=== PATIENT | female | born 1950 | race Caucasian/White ===

== ENCOUNTER 2019-07-27 15:07 | Emergency (ER) | payer MEDICARE, BC, SELFPAY ==
--- NOTE | 2019-07-27 | XR_ITS ---
WS: [id number] ELBOW RIGHT TECHNIQUE: 2 views of the right elbow CLINICAL INFORMATION: POST REDUCTION COMPARISON: July 27, 2019 FINDINGS: Postreduction elbow dislocation in good position. No definite visualized fractures. Soft tissue edema . Moderate joint effusion. XR/XR elbow RT 2V 79575 IMPRESSION: Postreduction elbow dislocation in good position. No definite fractures.
[2019-07-27 15:14] VITALS: BP 125/82; PULSE 69; RESP 20; TEMP 36.7; O2SAT 100; BMI 32.5
--- NOTE | 2019-07-27 15:14 | W.ED.UPPEXIN ---
Documented by User: Gloria Egan DO 07/27/19 18:08 HPI - Extremity Injury (Upper) General: Chief Complaint: Extremity Injury, Upper Stated Complaint: RIGHT ELBOW PAIN Time Seen by Provider: 07/27/19 15:11 History of Present Illness: HPI narrative: Pt was stepping up on a stool about 2 feet high and she fell landing on her right side. severe earlene nto right elbow, wrist, and hand. Has abrasions to her right knuckles. No head injury. No neck or back pain, and no pain in hips or legs. MD complaint: injury to: right, shoulder, elbow, wrist and hand Onset (ago): hour(s) (1) Other injuries: none Handedness: right Place: home Severity: severe Severity scale (1-10): 10 Relieving factors: none Exacerbating factors: movement of extremity Context: fall Associated symptoms: Reports crepitus; Denies foreign body sensation, neck pain, numbness or weakness in extremities Treatments prior to arrival: cold therapy Review of Systems General: Reports: 10 or more systems reviewed and unremarkable except in HPI and below Const: Denies: fever, chills or fatigue ENMT: Denies: throat pain Card: Denies: chest pain or swelling of feet/ankles Resp: Denies: shortness of breath or productive cough GI: Denies: abdominal pain, nausea, vomiting, diarrhea, constipation or blood in stool : Denies: difficulty urinating Musc: Reports: extremity swelling, joint pain, joint swelling, limited range of motion and deformity (distal right hand); Denies: neck pain Skin/Breast: Reports: other (abrasions to right knuckles); Denies: rash Neuro: Denies: weakness in extremities PFSH ED PFSH: Social History Smoking and tobacco status: never smoked Physical Exam Const: COMMON NORMALS: oriented x3, no limitations and healthy appearing; apparent distress EXAM LIMITATIONS: no altered mental status GENERAL APPEARANCE: cooperative and in distress Neck/C-Spine: COMMON NORMALS: full ROM GENERAL: Yes normal visual inspection and Yes trachea midline CERVICAL SPINE: Yes cervical ROM normal, No pain with cervical ROM, No cervical spine tenderness, No step off deformity and No paracervical muscle tenderness Chest: COMMONS NORMALS: inspection of chest normal Resp: COMMON NORMALS: normal respiratory effort, no retractions and clear to auscultation bilaterally EFFORT & INSPECTION: Yes able to speak in complete sentences AUSCULTATION: clear to auscultation bilaterally, no rales, no rhonchi and no wheezes Cardio: COMMON NORMALS: regular rate, regular rhythm, no murmurs and peripheral pulses 2+ throughout RATE: regular rate RHYTHM: regular rhythm PERIPHERAL PULSES: pulses 2+ throughout GI: COMMON NORMALS: normal to inspection, nondistended, normoactive bowel sounds, soft to palpation and non-tender PALPATION: Yes soft : COMMON NORMALS: Yes no CVA tenderness BLADDER/KIDNEY EXAM: Yes no CVA tenderness Back/Pelvis: COMMON NORMALS: no CVA tenderness, thoracic and lumbar spine normal to inspection, no thoracic nor lumbar tenderness and thoraco-lumbar ROM normal Extremity: RIGHT UPPER EXTREMITY: Yes shoulder joint (tender to palpation posteriorly, decreased ROM in abduction), Yes elbow joint (significant tenderness and swelling inferior to elbow with ecchymosis, ) Right elbow: Yes ROM (held in flexion, will not move), Yes wrist Right wrist: Yes palpation (tender to palpation of wrist, no swelling or deformity) and Yes hand & digits (swelling distal hand 4th and 5h metacarpals, good cap refill) Neuro: COMMON NORMALS: oriented x3 GAIT: Yes normal gait MOTOR EXAM: strength 5/5 throughout Psych: COMMON NORMALS: mental status grossly normal, thought process normal and cooperative THOUGHT PROCESS: normal thought process Procedures Orthopedic Splinting/Casting Injury #1: Side: right Upper Extremity Injury Location: elbow Upper Extremity Immobilizer: posterior splint and Nemesio wrap Course Vital Signs: Vital signs: Vital Signs Temperature 97.8 F 07/27/19 18:28 Pulse Rate 62 07/27/19 18:28 Respiratory Rate 16 07/27/19 18:28 Blood Pressure 119/73 07/27/19 18:28 Pulse Oximetry 100 07/27/19 18:28 MDM - Extremity Injury (Upper) MDM Narrative: Medical decision making narrative: shoulder and wrist show no acute fractures, elbow right shows posteror elbow dislocation. the pt had a 2cm deep puncture at elbow so it was cleaned well and loosely approximated and I will start her on abx, We have put her in a splint and will have her see Dr Sargent next week as instructed by Dr Sargent. Pt understands that if she doesnt she could lose her arm or function of her arm. She will return if anything worsens Imaging Data^: Other Xray: Radiologist's impression: XRay Report Signed Patient: Bebe Andrew #: [id number] : 1At#:[id number] Age/Sex: 68 / FADM Date: 07/27/19 Loc: ERRoom/Bed: Attending Dr: Ordering Provider/Ordering MD: Gloria Egan DO Date of Service: 07/27/19 Procedure(s): XR elbow RT 2V 35244 Accession Number(s): [id number] Report Number: [id number] WS: [id number] ELBOW RIGHT TECHNIQUE: 2 views of the right elbow CLINICAL INFORMATION: trauma COMPARISON: None. FINDINGS: Soft tissue edema. Joint effusion. Posterior elbow dislocation. Distal humerus is dislocated relative to the olecranon fossa. No definite visualized fractures. XR/XR elbow RT 2V 45028 IMPRESSION: Posterior elbow dislocation. No definite visualized fractures. Xray Ortho: Radiologist's impression: XRay Report Signed Patient: Bebe Andrew #: [id number] : 1At#:[id number] Age/Sex: 68 / FADM Date: 07/27/19 Loc: ERRoom/Bed: Attending Dr: Ordering Provider/Ordering MD: Gloria Egan DO Date of Service: 07/27/19 Procedure(s): XR hand RT min 3V* [id number] Accession Number(s): [id number] Report Number: [id number] WS: [id number] HAND RIGHT TECHNIQUE: 3 views of the right hand CLINICAL INFORMATION: trauma COMPARISON: None. FINDINGS: Normal metacarpals. Normal MCP joint. Metacarpal heads are normal in appearance IP joint narrowing. No evidence of acute fracture or dislocation. Radiocarpal joint: Normal. Carpal bones: Normal. XR/XR hand RT min 3V* [id number] IMPRESSION: No acute fractures Dictated By:Amandeep Costa MD Signed By:Amandeep Costa MDSigned Date/Time:07/27/19 1557 Discharge Plan Discharge Patient Disposition: Home, Self-Care Clinical Impression: Sprain and strain of wrist Dislocation of elbow Qualifiers: Encounter type: initial encounter Laterality: right Qualified Code(s): S53.104A - Unspecified dislocation of right ulnohumeral joint, initial encounter Contusion of hand Qualifiers: Encounter type: initial encounter Laterality: right Qualified Code(s): S60.221A - Contusion of right hand, initial encounter Condition: Stable Prescriptions: New hydrocodone-acetaminophen 5-325 mg tablet 1 tab PO Q4H PRN (Reason: pain) Qty: 20 RF: 0 doxycycline hyclate 100 mg tablet 100 mg PO BID 7 Days Qty: 14 RF: 0 No Action aspirin 81 mg Tablet,Delayed Release (Dr/Ec) 81 mg PO DAILY RF: 0 spironolactone 25 mg tablet 25 mg PO DAILY RF: 0 Synthroid 100 mcg tablet 100 mcg PO DAILY RF: 0 citalopram 20 mg tablet 20 mg PO DAILY RF: 0 metoprolol succinate 25 mg tablet extended release 24 hr 25 mg PO DAILY RF: 0 Crestor 5 mg Tablet 5 mg PO DAILY RF: 0 vit D3-vit X-iilrvfgvr-njtk [id number] vdbi-qcz-ka-mg Tablet 1 tab PO DAILY RF: 0 Entresto 24-26 mg Tablet 1 tab PO BID RF: 0 Discharge Orders: Discharge Order (Routine); Ordered 07/27/19 Ordered By: Gloria Egan Referrals: Berta Carroll MD [Primary Care Provider] - Pinky Sargent MD [Physician] - 1 week Discharge Diet: Regular Discharge Activity: Limit activity as instructed Patient Instructions: Dislocation - Elbow Activity Restrictions/Additional Instructions: wear splint until released, Follow up with Dr Sargent next week. Case management will work on getting you an appointment. Ice and elevate. Return if worse, any problem, any change. Take meds as prescribed Discharge Date/Time: 07/27/19 18:29 Coding Level of Care Code ED Testing And Regulating Technician for Chg Fwd Exam Comprehensive Documented by User: Justyna Knowles MD, [facility] [place] 07/27/19 21:49 HPI - Extremity Injury (Upper) General: Chief Complaint: Extremity Injury, Upper Stated Complaint: RIGHT ELBOW PAIN Time Seen by Provider: 07/27/19 15:11 PFSH ED PFSH: Social History Smoking and tobacco status: never smoked Procedures Laceration Laceration 1: Site: upper extremity (right elbow) Size (cm): 1.5 Description: linear Depth: simple, single layer (2 cm) Local Anesthetic: lidocaine 1% and with epi Amount of anesthesia used (mL): 2 Pre-repair: wound explored and irrigated extensively Skin layer closed with: nylon Size (cm): 4-0 Number of sutures: 2 Technique: simple, interrupted Orthopedic Joint Reduction Joint #1: Time Out Performed: Yes Side: right Joint Reduction Location: elbow Analgesia: procedural sedation Technique used: traction/counter-traction Post-reduction neuro exam: intact Post-reduction vascular: intact Post Reduction X-Ray Obtained: Yes Post Reduction X-Ray Results: reduced Splint Applied: Yes Patient Tolerated Procedure: well Procedural Sedation Indication: fracture/dislocation reduction ASA Class: III Time of Last PO Intake: 12:00 Preparation: youth nutritional monitor applied, pulse oximeter, supplemental O2 applied, reversal agents at bedside, suction/airway equipment at bedside and IV secured Fentanyl: IV Fentanyl dose (mcg): 50 Midazolam dose (mg): 2 Patient Tolerated Procedure: well Complications: none Additional Comments: 2.5 of midazolam used, but Expanse is not accepting decimals Course Vital Signs: Vital signs: Vital Signs Temperature 97.8 F 07/27/19 18:28 Pulse Rate 62 07/27/19 18:28 Respiratory Rate 16 07/27/19 18:28 Blood Pressure 119/73 07/27/19 18:28 Pulse Oximetry 100 07/27/19 18:28 Discharge Plan Discharge Patient Disposition: Home, Self-Care Clinical Impression: Sprain and strain of wrist Dislocation of elbow Qualifiers: Encounter type: initial encounter Laterality: right Qualified Code(s): S53.104A - Unspecified dislocation of right ulnohumeral joint, initial encounter Contusion of hand Qualifiers: Encounter type: initial encounter Laterality: right Qualified Code(s): S60.221A - Contusion of right hand, initial encounter Condition: Stable Prescriptions: New hydrocodone-acetaminophen 5-325 mg tablet 1 tab PO Q4H PRN (Reason: pain) Qty: 20 RF: 0 doxycycline hyclate 100 mg tablet 100 mg PO BID 7 Days Qty: 14 RF: 0 No Action aspirin 81 mg Tablet,Delayed Release (Dr/Ec) 81 mg PO DAILY RF: 0 spironolactone 25 mg tablet 25 mg PO DAILY RF: 0 Synthroid 100 mcg tablet 100 mcg PO DAILY RF: 0 citalopram 20 mg tablet 20 mg PO DAILY RF: 0 metoprolol succinate 25 mg tablet extended release 24 hr 25 mg PO DAILY RF: 0 Crestor 5 mg Tablet 5 mg PO DAILY RF: 0 vit D3-vit X-wxialqvsz-ityw [id number] jcjs-spy-bm-mg Tablet 1 tab PO DAILY RF: 0 Entresto 24-26 mg Tablet 1 tab PO BID RF: 0 Discharge Orders: Discharge Order (Routine); Ordered 07/27/19 Ordered By: Glroia Egan Referrals: Berta Carroll MD [Primary Care Provider] - Pinky Sargent MD [Physician] - 1 week Discharge Diet: Regular Discharge Activity: Limit activity as instructed Patient Instructions: Dislocation - Elbow Activity Restrictions/Additional Instructions: wear splint until released, Follow up with Dr Sargent next week. Case management will work on getting you an appointment. Ice and elevate. Return if worse, any problem, any change. Take meds as prescribed Discharge Date/Time: 07/27/19 18:29 Coding Level of Care Code ED Testing And Regulating Technician for [place] Fwd Exam Comprehensive
--- NOTE | 2019-07-27 15:20 | XR_ITS ---
WS: [id number] HAND RIGHT TECHNIQUE: 3 views of the right hand CLINICAL INFORMATION: trauma COMPARISON: None. FINDINGS: Normal metacarpals. Normal MCP joint. Metacarpal heads are normal in appearance IP joint narrowing. N o evidence of acute fracture or dislocation. Radiocarpal joint: Normal. Carpal bones: Normal. XR/XR hand RT min 3V* [id number] IMPRESSION: No acute fractures
--- NOTE | 2019-07-27 15:20 | XR_ITS ---
WS: [id number] SHOULDER RIGHT TECHNIQUE: 3 views of the right shoulder CLINICAL INFORMATION: trauma COMPARISON: None. FINDINGS: Normal acromioclavicular joint. Normal glenohumeral joint. Acromion is normal in appearance. Normal g lenoid. No evidence of acute fracture dislocation. Partially visualized AICD. Sternotomy. XR/XR shoulder RT min 2V* [id number] IMPRESSION: No acute fractures
--- NOTE | 2019-07-27 15:20 | XR_ITS ---
WS: [id number] WRIST RIGHT TECHNIQUE: 2 views of the right wrist CLINICAL INFORMATION: trauma COMPARISON: None. FINDINGS: Normal radiocarpal joint. Scaphoid is normal in appearance. No evidence of radiocarpal dislocation. D istal radius and ulna are normal in appearance. XR/XR wrist RT 2V [id number] IMPRESSION: No acute fractures
--- NOTE | 2019-07-27 15:20 | XR_ITS ---
WS: [id number] ELBOW RIGHT TECHNIQUE: 2 views of the right elbow CLINICAL INFORMATION: trauma COMPARISON: None. FINDINGS: Soft tissue edema. Joint effusion. Posterior elbow dislocation. Distal humerus is dislocated relative to the olecranon fossa. No definite visualized fractures. XR/XR elbow RT 2V [id number] IMPRESSION: Posterior elbow dislocation. No definite visualized fractures.
[2019-07-27 15:25] VITALS: RESP 21
[2019-07-27] MEDS: morphine 4 mg/mL SDV 1 mL IVP ×2 (15:25→15:46)
[2019-07-27] MEDS: ondansetron 2 mg/ML SDV 2 mL 4 MG IVP (15:25)
[2019-07-27 15:46] VITALS: RESP 16; O2SAT 98
[2019-07-27 16:26] VITALS: BP 125/68; PULSE 78; RESP 18; TEMP 36.9; O2SAT 97; O2SAT 98
[2019-07-27] MEDS: fentaNYL 50 mcg/mL INJ 2mL IVP (16:26)
[2019-07-27] MEDS: midazolam 1 mg/mL INJ 2 mL 2.5 MG IVP (16:28)
[2019-07-27] MEDS: tetanus-dipt-pertussis 0.5 mL SDV IM (17:47)
[2019-07-27 18:28] VITALS: BP 119/73; PULSE 62; RESP 16; TEMP 36.6; O2SAT 100
--- NOTE | 2019-07-28 14:34 | DCPLANNER ---
Addendum entered by Lisbet Mcintyre 08/02/19 11:27: Tiffanie from ortho called case reviewer and informed case reviewer that a follow up appointment was scheduled for Wednesday, August 02, 2019 at 12:[address] Mcarthur. Clinic will call patient with appointment information. Original Note: hospice case manager had message to schedule a follow up appointment for patient with ortho. hospice case manager called ortho, spoke with [facility], gave clinic patients information. hospice case manager was told that patients information would be printed and reviewed. Clinic will call case reviewer and patient with appointment information.
--- NOTE | 2019-09-12 07:58 | DCPLANNER ---
Patient did attend appointment scheduled for 08.02.19 with ortho.
== END 2019-07-27 18:29 | disposition home or self-care (01) ==
PROVIDERS: Emergency Provider Emergency Medicine; Family Provider Family Medicine; PCP Family Medicine
DX: S53.124A Posterior dislocation of right ulnohumeral joint, initial encounter (principal); S60.221A Contusion of right hand, initial encounter; S51.011A Laceration without foreign body of right elbow, initial encounter; S63.501A Unspecified sprain of right wrist, initial encounter; W17.89XA Other fall from one level to another, initial encounter
CPT/HCPCS: 12001; 12345; 24600; 73030; 73070; 73100; 73130; 90471; 90715; 96374; 96375; 96376; 99283; 99284; J2250; J2270; J2405; J3010

== ENCOUNTER → 2019-08-02 13:15 | Outpatient (BNVA) | payer MEDICARE, BC, SELFPAY | PROVIDERS: Family Provider Family Medicine; PCP Family Medicine; Visit Provider Orthopaedic Surgery | DX: M25.521 Pain in right elbow (principal); R60.9 Edema, unspecified; M25.421 Effusion, right elbow | CPT/HCPCS: 73080 ==

== ENCOUNTER 2020-01-02 11:00 | Outpatient (CLI) | payer MEDICARE, BC, SELFPAY ==
--- NOTE | 2020-01-02 11:16 | MM_ITS ---
WS: [id number] BILATERAL SCREENING DIGITAL MAMMOGRAM WITH CAD HISTORY: SCREEN COMPARISON: 11/17/2018 and 11/03/2017 Bilateral CC and MLO views submitted. Computer aided detection analyzed. Breast composition: There are scattered areas of fibroglandular density. No suspicious masses, microc alcifications or architectural distortion. Benign calcifications in each breast. MM/[place] [id number] IMPRESSION: BI-RADS: 2-Benign FOLLOW UP: 1 Year Follow-up
== END 2020-01-02 11:01 | disposition home or self-care (01) ==
LOC: RADSHAW 11:03
PROVIDERS: PCP Family Medicine; Visit Provider Family Medicine
DX: Z12.31 Encounter for screening mammogram for malignant neoplasm of breast (principal)
CPT/HCPCS: 77067

== ENCOUNTER 2020-05-14 14:21 | Outpatient (CLI) | payer MEDICARE, BC, SELFPAY ==
--- NOTE | 2020-05-14 14:25 | XR_ITS ---
WS: [id number] DEXA (DUAL ENERGY X-RAY ABSORPTIOMETRY) Bone mineral density was performed using a [employer] machine. HISTORY: ASYMPTOMATIC MENOPAUSAL STATE COMPARISON: 06/30/2017 Lumbar spine BMD (L1-L4): 1.135 g/cm2 T score: -0.4 Z score: 0.5 Total hip BMD: Left: 0.792 g/cm2. T score: -1.7 Z score: -0.8 Right: 0.834 g/cm2. T score: -1.4 Z score: -0.5 10 year probability of a major osteoporotic fracture is 10%. Compared to the prior study from 06/30/2017. Lumbar spine bone mineral density has increased by 1.2%. Bilateral hips bone mineral density has increased by 1.8%. XR/XR DEXA axial skeleton* [id number] IMPRESSION: OSTEOPENIA based upon the WHO classification for females. No significant change since the prior study.
== END 2020-05-14 14:22 | disposition home or self-care (01) ==
LOC: RADWPI 14:23
PROVIDERS: PCP Family Medicine; Visit Provider Family Medicine
DX: Z78.0 Asymptomatic menopausal state (principal); M85.88 Other specified disorders of bone density and structure, other site
CPT/HCPCS: 77080

== ENCOUNTER 2020-07-19 10:25 | Outpatient (CLI) | payer MEDICARE, BC, SELFPAY ==
--- NOTE | 2020-07-19 10:38 | XR_ITS ---
WS: [id number] Chest 2 views, 07/19/2020 Clinical Data: PNEUMONIA, UNSPECIFIED ORGANISM Comparison: Portable chest, 05/09/2018. Findings: No nodules, masses or effusions are seen. The heart is normal. The pulmonary vascularity is not increased. No pneumonia or pneumothorax is seen. Midline sternotomy sutures are present. There i s a 2-lead pacemaker in good position. The aortic arch and descending aorta show mild tortuosity. XR/XR chest 2V* 55901 Impression: Atherosclerosis and prominent pacemaker.
== END 2020-07-19 10:26 | disposition home or self-care (01) ==
LOC: RADWPI 10:32
PROVIDERS: PCP Family Medicine; Visit Provider Nurse Practitioner Family
DX: J18.9 Pneumonia, unspecified organism (principal); I70.90 Unspecified atherosclerosis; Z95.0 Presence of cardiac pacemaker
CPT/HCPCS: 71046

== ENCOUNTER 2020-10-31 18:19 | Emergency (ER) | payer MEDICARE, BC, SELFPAY ==
[2020-10-31 18:44] VITALS: BP 150/83; PULSE 67; RESP 18; TEMP 36.7; O2SAT 96; BMI 34.3
[2020-10-31 20:44] VITALS: BP 171/80; PULSE 68; TEMP 36.7; O2SAT 97
--- NOTE | 2020-10-31 20:55 | XRR_ITS ---
PROCEDURE INFORMATION: Exam: XR Right Ankle Exam date and time: 10/31/2020 8:55 PM Age: 70 years old Clinical indication: Injury or trauma; Fall; Blunt trauma; Ankle; Right; Prior surgery; Surgery type: Vein bypass TECHNIQUE: Imaging protocol: XR Right ankle. Views: 3 or more views. COMPARISON: No relevant prior studies available. FINDINGS: Bones/joints: There is a mildly displaced fracture of the lateral malleolus at and above the level of the distal tibiofibular syndesmosis. There is a displaced fracture the medial malleolus. There is a displaced fracture of the posterior malleolus. There is anterior subluxation of the tibia relative to talus. The hindfoot is intact. Soft tissues: There is diffuse soft tissue edema at the ankle. XR/XR ankle RT min 3V* [id number] IMPRESSION: Unstable displaced trimalleolar ankle fracture with anterior subluxation of the tibia relative to the talus.
--- NOTE | 2020-10-31 21:10 | W.ED.EXTPRO ---
Documented by User: JIM Lawrence 10/31/20 23:37 HPI - Extremity Problem General: Chief complaint: Extremity Injury, Lower Stated complaint: r leg injury Time Seen by Provider: 10/31/20 21:10 History of Present Illness: HPI Narrative: [place]. Patient has pain and discomfort with swelling to the lower right ankle. Injury occurred today. Patient has a history of coronary artery disease, hypertension, hyperlipidemia, and hearing loss. MD Complaint: extremity pain Onset (ago): hour(s) Pain Consistency: constant Location: right Quality: aching Radiation: none Relieving factors: rest Exacerbating factors: weight bearing Associated symptoms: Reports no associated symptoms Review of Systems General: Reports: 10 or more systems reviewed and unremarkable except in HPI and below Musc: Reports: other (Injury right ankle) [facility] ED PFSH: Medical History Cardiomyopathy HTN (hypertension) Hyperlipidemia Hypothyroidism Social History Smoking and tobacco status: never smoked Second hand smoke exposure: No Alcohol intake: never Household members: spouse Marital status: Special radha needs: No Physical Exam Const: COMMON NORMALS: no acute distress and patient oriented x3 GENERAL APPEARANCE: cooperative HENMT: COMMON NORMALS: normocephalic and Normal external nose present HEAD & SCALP: normal to inspection and normocephalic NOSE: Normal external nose present Eye: GENERAL EYE: appearance normal, both eyes and all related structures Neck/C-Spine: COMMON NORMALS: full ROM Lymph: LYMPHATIC: no lymphadenopathy noted Chest: COMMONS NORMALS: normal inspection of the chest Resp: COMMON NORMALS: normal respiratory effort EFFORT & INSPECTION: Yes able to speak in complete sentences Cardio: COMMON NORMALS: regular rate and regular rhythm RATE: regular rate RHYTHM: regular rhythm GI: COMMON NORMALS: non-tender Extremity: NARRATIVE EXTREMITY EXAM: No obvious deformity, significant swelling to the bilateral ankle with ecchymosis. Cap refill is intact, decreased pulse sensation. Neuro: COMMON NORMALS: patient oriented x3 and moves all extremities Psych: COMMON NORMALS: mental status grossly normal and cooperative Skin: COMMON NORMALS: no rashes or lesions noted GENERAL SKIN EXAM: no rashes or lesions noted Course ED course: 2129, discussed with Dr. Moody patient's trimalleolar fracture, he agreed with plan for reduction. Patient will be moved to a room and conscious sedation will be performed and manipulation of the joint will be performed. Consultations: Consultation #1: [id number], consulted with Dr. Thompson who agreed to plan duction and splinting and following up in the office. Vital Signs: Vital signs: Vital Signs Temperature 98.1 F 10/31/20 20:44 Pulse Rate 66 10/31/20 23:30 Respiratory Rate 18 10/31/20 23:30 Blood Pressure 145/69 10/31/20 23:30 Pulse Oximetry 98 10/31/20 23:30 MDM - Extremity (Nontraumatic) MDM Narrative: Medical decision making narrative: Patient comes in today for complaints of injury to the right ankle. Injury occurred this afternoon when [place] Patient had significant pain and swelling with ecchymosis to the ankle. Differential diagnosis includes fracture, sprain, neurovascular compromise. X-ray noted a trimalleolar fracture. I reviewed this with Dr. Moody who will assume care of patient for reduction of joint. Discharge Plan Discharge Patient Disposition: Home Clinical Impression: Ankle fracture Qualifiers: Encounter type: initial encounter Fracture type: closed Laterality: right Qualified Code(s): S82.891A - Other fracture of right lower leg, initial encounter for closed fracture Condition: Stable Prescriptions: New hydrocodone-acetaminophen 5-325 mg tablet 1 tab PO Q6H PRN (Reason: pain) Qty: 14 RF: 0 No Action furosemide 40 mg tablet 40 mg PO DAILY PRNRF: 0 aspirin 81 mg Tablet,Delayed Release (Dr/Ec) 81 mg PO DAILY RF: 0 Synthroid 100 mcg tablet 100 mcg PO DAILY RF: 0 citalopram 20 mg tablet 20 mg PO DAILY RF: 0 metoprolol succinate 25 mg tablet extended release 24 hr 25 mg PO DAILY RF: 0 Crestor 5 mg Tablet 5 mg PO DAILY RF: 0 vit D3-vit R-koukbjric-fisg [id number] sjgo-aye-nv-mg Tablet 1 tab PO DAILY RF: 0 Entresto 24-26 mg Tablet 1 tab PO BID RF: 0 spironolactone 25 mg tablet 12.5 mg PO DAILY RF: 0 Discharge Orders: Discharge ED (Routine); Ordered 11/01/20 Ordered By: Nessa Moody Referrals: Berta Carroll MD [Primary Care Provider] - Pinky Sargent MD [Physician] - 1-3 days Discharge Diet: Advance as tolerated Discharge Activity: Resume usual activity Patient Instructions: Ankle Fracture (ED), Opioid Safety Coding Level of Care Code ED Projection Technician for Chg Fwd Exam Comprehensive Documented by User: Nessa Moody MD 11/01/20 00:55 HPI - Extremity Problem General: Chief complaint: Extremity Injury, Lower Stated complaint: r leg injury Time Seen by Provider: 10/31/20 21:10 [facility] ED PFSH: Medical History Cardiomyopathy HTN (hypertension) Hyperlipidemia Hypothyroidism Social History Smoking and tobacco status: never smoked Second hand smoke exposure: No Alcohol intake: never Household members: spouse Marital status: Special radha needs: No Procedures Orthopedic Fracture Reduction Fracture #1: Time Out Performed: Yes Side: right Fracture Reduction Location: other (ankle) Analgesia: procedural sedation Technique: direct manipulation Post-reduction neuro exam: intact Post-reduction vascular exam: intact Splint Applied: Yes Patient Tolerated Procedure: well Procedural Sedation Indication: fracture/dislocation reduction ASA Class: II Time of Last PO Intake: 17:54 Preparation: night monitor applied, pulse oximeter and supplemental O2 applied IV Propofol dose (mg): 80 Patient Tolerated Procedure: well Complications: none Course Vital Signs: Vital signs: Vital Signs Temperature 98.1 F 10/31/20 20:44 Pulse Rate 66 10/31/20 23:30 Respiratory Rate 18 10/31/20 23:30 Blood Pressure 145/69 10/31/20 23:30 Pulse Oximetry 98 10/31/20 23:30 MDM - Extremity (Nontraumatic) MDM Narrative: Medical decision making narrative: I saw patient with above midlevel and did her reduction. I also placed her splint she is neurovascularly intact after splint placement. Patient is to follow-up with Dr. Thompson. Discharge Plan Discharge Patient Disposition: Home Clinical Impression: Ankle fracture Qualifiers: Encounter type: initial encounter Fracture type: closed Laterality: right Qualified Code(s): S82.891A - Other fracture of right lower leg, initial encounter for closed fracture Condition: Stable Prescriptions: New hydrocodone-acetaminophen 5-325 mg tablet 1 tab PO Q6H PRN (Reason: pain) Qty: 14 RF: 0 No Action furosemide 40 mg tablet 40 mg PO DAILY PRNRF: 0 aspirin 81 mg Tablet,Delayed Release (Dr/Ec) 81 mg PO DAILY RF: 0 Synthroid 100 mcg tablet 100 mcg PO DAILY RF: 0 citalopram 20 mg tablet 20 mg PO DAILY RF: 0 metoprolol succinate 25 mg tablet extended release 24 hr 25 mg PO DAILY RF: 0 Crestor 5 mg Tablet 5 mg PO DAILY RF: 0 vit D3-vit L-dicutccrz-eybv [id number] wakn-hfd-da-mg Tablet 1 tab PO DAILY RF: 0 Entresto 24-26 mg Tablet 1 tab PO BID RF: 0 spironolactone 25 mg tablet 12.5 mg PO DAILY RF: 0 Discharge Orders: Discharge ED (Routine); Ordered 11/01/20 Ordered By: Nessa Moody Referrals: Berta Carroll MD [Primary Care Provider] - Pinky Sargent MD [Physician] - 1-3 days Discharge Diet: Advance as tolerated Discharge Activity: Resume usual activity Patient Instructions: Ankle Fracture (ED), Opioid Safety Coding Level of Care Code ED Projection Technician for Chg Fwd Exam Comprehensive
--- NOTE | 2020-10-31 23:01 | PC.NURSE ---
doppler pulse of right foot is noted and marked
[2020-10-31 23:30] VITALS: BP 145/69; PULSE 66; RESP 18; O2SAT 98
--- NOTE | 2020-10-31 23:50 | PC.NURSE ---
consent obtained for moderate conscious sedation report given to Jesus RUIZ
--- NOTE | 2020-11-01 00:19 | PC.NURSE ---
report to Mani RUIZ
[2020-11-01] MEDS: propofol 10 mg/mL SDV 20 mL 45.4 MG IVP (00:30)
--- NOTE | 2020-11-01 00:42 | XRR_ITS ---
PROCEDURE INFORMATION: Exam: XR Right Ankle Exam date and time: 11/01/2020 12:42 AM Age: 70 years old Clinical indication: Injury or trauma; Other: Post reduction; Blunt trauma; Ankle; Right; Prior surgery; Surgery type: Vascular graft TECHNIQUE: Imaging protocol: XR Right ankle. Views: 1 or 2 views. COMPARISON: CR (LOW EX, ) 10/31/2020 9:09 PM FINDINGS: Bones/joints: There has been interval reduction of tibiotalar subluxation. Tibiotalar alignment is now anatomic. There is improved alignment of trimalleolar ankle fractures which are now minimally displaced. The hindfoot is unremarkable. Soft tissues: Soft tissues are obscured by the cast. XR/XR ankle RT 2V [id number] IMPRESSION: Improved alignment of the ankle post reduction.
[2020-11-01 01:27] VITALS: BP 142/73; PULSE 82; RESP 16; TEMP 36.9; O2SAT 98
[2020-11-01] MEDS: HYDROcodone-acetaminophen 5-325 mg Tablet 1 TAB PO (02:03)
--- NOTE | 2020-11-01 08:26 | DCPLANNER ---
business intelligence manager had message to schedule a follow up appointment for patient with ortho due an ankle fracture. business intelligence manager called the ortho clinic, spoke with [facility], gave clinic patients information. business intelligence manager was told that patients information would be printed and reviewed. Clinic will call patient with appointment information.
--- NOTE | 2020-11-06 11:14 | DCPLANNER ---
Patient had a follow up appointment scheduled for 11.04.[address] Sargent at [facility] - patient did attend appointment.
== END 2020-11-01 02:11 | disposition home or self-care (01) ==
PROVIDERS: Emergency Provider Emergency Medicine; PCP Family Medicine
DX: S82.854A Nondisplaced trimalleolar fracture of right lower leg, initial encounter for closed fracture (principal); X50.1XXA Overexertion from prolonged static or awkward postures, initial encounter; I10 Essential (primary) hypertension; E78.5 Hyperlipidemia, unspecified
CPT/HCPCS: 73600; 73610; 99284; E0114; J2704

== ENCOUNTER → 2020-11-04 09:28 | Outpatient (BNVA) | payer MEDICARE, BC, SELFPAY | PROVIDERS: PCP Family Medicine; Referring Provider Emergency Medicine; Visit Provider Specialist | DX: S82.491A Other fracture of shaft of right fibula, initial encounter for closed fracture (principal); S82.51XA Displaced fracture of medial malleolus of right tibia, initial encounter for closed fracture; W19.XXXA Unspecified fall, initial encounter; Z20.822 Contact with and (suspected) exposure to COVID-19 | CPT/HCPCS: 73610; 87635 ==

== ENCOUNTER 2020-11-08 11:41 | Day surgery (SDC) | payer MEDICARE, BC, SELFPAY ==
[2020-11-07 10:18] VITALS: BMI 34.3
[2020-11-08] VITALS (9 sets, daily range): BP systolic 118–153; BP diastolic 61–71; PULSE 60–65; RESP 16–22; TEMP 36.4–36.6; O2SAT 73–97
--- NOTE | 2020-11-08 | SCC_ITS ---
Procedure Done: Open reduction internal fixation right trimalleolar ankle fracture, right 150.2 seconds of fluoroscopic guidance, for a cumulative dose of 5.78 mGy, was provided to Dr. Sargent by the radiology department. C-arm images of the RIGHT ankle were saved for the patient's permanent record. [facility]
--- NOTE | 2020-11-08 | XR_ITS ---
WS: [id number] XR ankle RT 2V [id number] REASON FOR EXAM: OR PICS FINDINGS: Trimalleolar fracture. Plate and screw fixation of the lateral malleolar fracture site Long screw fixation of the medial malleolar fracture site. Fracture fragments and surgical appliances are in proper position and alignment. XR/XR ankle RT 2V [id number] IMPRESSION: Fixation of medial and lateral malleolar fractures as above.
--- NOTE | 2020-11-08 11:51 | ECG_ITS ---
[facility] Test Date: 2020-11-08 Pat Name: Theresa Andrew Department: Room: Gender: Female Phone Representative: : 1950 Requested By: Fannie Guajardo Order Number: [id number] Kenrick MD: Jose Ramos M.D. Measurements Intervals [place] Rate: 59 P: -1 MD: 250 QRS: 3 QRSD: 104 T: 53 QT: 450 QTc: 449 Interpretive Statements ELECTRONIC ATRIAL PACEMAKER POSSIBLE RIGHT VENTRICULAR CONDUCTION DELAY [RSR (QR) IN V1/V2] NONSPECIFIC T-WAVE ABNORMALITY ABNORMAL RHYTHM ECG Compared to ECG 05/09/2018 10:08:12 No significant changes Electronically Signed On 11-08-2020 14:55:27 CDT by Jose Ramos M.D. [email or web address]
--- NOTE | 2020-11-08 12:15 | W.PM.OPSUD ---
Surgery/Procedure H&P Update DATE OF PROCEDURE: November 08, 2020 DATE H&P PERFORMED: 11/04/20 H&P UPDATE INFORMATION: I have reviewed H&P completed within last 30 days, I have examined patient prior to procedure, No changes to prior documentation and H&P is in [facility] [place] on date indicated PREOP DIAGNOSIS: Unstable right trimalleolar ankle fracture PLANNED PROCEDURE: Operation Date: 11/08/20 13:20 Proposed Procedures p ORIF right trimalleolar ankle fracture 32095 s82.851A(Right) - Pinky Sargent MD Related Problem List Diagnoses (1) Trimalleolar fracture of right ankle: Qualifiers: Encounter type: initial encounter Fracture type: closed Qualified Code(s): S82.851A - Displaced trimalleolar fracture of right lower leg, initial encounter for closed fracture
--- NOTE | 2020-11-08 12:26 | P.ANESASSM_ITS ---
Pre-Anesthetic Assessment Pre-Anesthetic Assessment: Height/Weight: Height 1.63 m Weight 90.718 kg Temp Pulse Resp BP Pulse Ox 97.8 F 61 18 153/68 97 11/08/20 12:08 11/08/20 12:08 11/08/20 12:08 11/08/20 12:08 11/08/20 12:08 Preop Diagnosis: Unstable right trimalleolar ankle fracture Proposed Procedure: Operation Date: 11/08/20 13:20 Proposed Procedures p ORIF right trimalleolar ankle fracture 66550 s82.851A(Right) - Pinky Sargent MD Familial anesthetic complications: none Was Beta Mayuri taken within 24 hours: Yes Was Clonidine taken within 24 hours: N/A Last intake: Intake Last Liquid Date 11/08/20 Last Liquid Time 08:00 Last Solid Date 11/07/20 Last Solid Time 18:30 Social: Social History: No alcohol and No tobacco Exam: Pre-Anes Outpt Exam: alert, oriented x 3, clear to auscultation bilaterally and regular rate & rhythm Airway: Cervical ROM: WNL MP: 3 Dentition: Full CV/HEM: CV/HEM: CAD, CHF and HTN Comments: cardiomyopathy, CABG, ICD Patients states echo last year had EF of 40%, 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 automotive service 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 in [place], states stable heart failure Only takes Lasix prn for edema, hasn't taken it in over a month GI: GI: GERD Metabolic: Metabolic: Thyroid Anesthetic Plan: ASA status: 4 Anesthesia: General and Regional (specify below) Risk of > 500 ml blood loss (7ml/kg in children): No PFSH Anesthesia PFSH: Medical History Cardiomyopathy HTN (hypertension) Hyperlipidemia Hypothyroidism Social History Smoking and tobacco status: never smoked Second hand smoke exposure: No Alcohol intake: never Household members: spouse Marital status: Special radha needs: No Data Anesthesia Cardiac Studies: No Data to Display
[2020-11-08] MEDS: sodium chloride 0.9% 1,000 ML 30 ML IV (12:46)
[2020-11-08] MEDS: acetaminophen 1,000 MG/100 ML PIGGYBACK 400 MG IV (12:47)
[2020-11-08] MEDS: vancomycin 1,000 MG in sodium chloride 0.9% 250 ML 250 MG IV (13:00)
--- NOTE | 2020-11-08 13:04 | ANES.PROC ---
Anesthesia Procedures Procedure/Date: 11/08/20 Nerve Block ^: Nerve Block 1: Main Anesthesia: general anesthesia Time Out Performed: Yes Consent: requested by attending/covering physician, from patient, from other, risks and benefits reviewed and patient agrees to proceed Nerve block location: popliteal (R) Anesthesia monitors applied: pulse oximetry, EKG, BP cuff and oxygen Nerve block position: supine Anesthetic Used: ropivicaine 0.5% and with decadron (4) Amount of anesthesia used (mL): 30 Ultrasound used to: recognize landmarks Nerve Stimulator Used?: No Interscalene/Femoral BLK: 4 stimuplex 21 g needle used for position and inplane approach, visualize local anesthetic spread and no vascular puncture identified Injection: neg aspiration of heme Patient Tolerated Procedure: well and no complications Complications: none
--- NOTE | 2020-11-08 13:21 | SUR.PREOP ---
1300-timeout was performed for nerve block in OPS. Patient tolerated procedure well.
[2020-11-08] MEDS: vancomycin 1,000 MG SDV 1000 MG IRRIGATION (14:09)
[2020-11-08] MEDS: silvasorb gel 44.4 mL 1 APPLIC TOPICAL (14:10)
[2020-11-08 14:47] LABS: Add Urine Microscopic? NO; Charge for UA Resulting for Rev
[2020-11-08 15:01] LABS: Bilirubin Urine Neg (Negative); Blood Urine Neg (Negative); Glucose Urine UA Norm (Normal); Ketones Urine Negative (Negative); Leukocyte Esterase Urine Negative (Negative); Nitrate Urine Negative (Negative); Protein Urine Neg (Negative); Urine Appearance Clear (CLEAR); Urine Color Straw (Yellow); Urobilinogen Urine Norm (Negative); pH Urine 7 (5-7)
--- NOTE | 2020-11-08 15:29 | P.PCN_ITS ---
PACU note PACU note: VSS, Good respiratory effort, report to FISH BAIT PROCESSING SUPERVISOR Post-Anesthesia Exam: awake
--- NOTE | 2020-11-08 15:29 | PM.PACU ---
PACU note PACU note: VSS, Good respiratory effort, report to CUSTOMER CARE ASSISTANT Post-Anesthesia Exam: awake
--- NOTE | 2020-11-08 15:32 | PM.OP ---
Operative Report Date of procedure: November 08, 2020 Pre-op Diagnosis: Unstable right trimalleolar ankle fracture Post-op diagnosis: same Post-op Findings: Unstable right trimalleolar ankle fracture Procedure Done: Open reduction internal fixation right trimalleolar ankle fracture, right Implants: Judy 4-hole lateral fibular plate with 2 headless medial Opifix screws Specimens removed/disposition: None Pathology: none sent Surgeon: Pinky Sargent Test Man: [facility] operating room technicians Anesthesia: General (LMA, ASA 3) Estimated blood loss (mL): 50 Tourniquet time (min): 18 Tourniquet time: At 250 mmHg, the tourniquet malfunctioned at 18 minutes. IV fluids (mL): 200 Urine output (mL): 0 Urine output: No Smith Complications: None Condition: stable Disposition: PACU (To same-day surgery for discharge to home) Brief History: This 70-year-old woman was at the [place] when she slipped and fell suffering the above injury. She presented to my office after a closed reduction was accomplished in the emergency department. After discussion, I explained to the patient this is a very unstable fracture pattern. I suggested that we undergo open reduction internal fixation. She and her were in agreement. Appropriate medical evaluation was accomplished before her surgical intervention. Risks and complications were discussed and consents were signed. Questions were answered. Procedure: Patient was seen in the preoperative holding area and leg was marked. Patient was brought to the operating theater and placed on the operating room table. After undergoing adequate general anesthesia per LMA, ASA 3, the patient's right lower extremity was prepped and draped in usual fashion utilizing DuraPrep. The leg was draped free. Fluoroscopy was used throughout the surgical procedure. We did have a tourniquet high on the right lower extremity. This was elevated to 250 mmHg and total tourniquet time was 18 minutes. Tourniquet elevation followed exsanguination of the leg. After the 18 minutes, the tourniquet did malfunction, and we did the procedure without reelevating a tourniquet. A surgical pause was performed. At the time of the surgical pause we identified the site and side of surgery as well as the patient's identity and availability of equipment. We also confirmed appropriate administration of IV antibiotics. Following the above, an incision was made centering over the patient's lateral malleolar fracture fracture. The incision was continued proximally and distally as necessary to allow access to the fracture. We were able to reduce the fracture anatomically. This was held with a clamp while we contoured a plate to appropriately fit the patient's lateral malleolar fracture. We had 3 holes above the fracture. The [place] 4-hole lateral fibular plate was attached with standard technique. We used locking screws. Once the plate was appropriately attached, we irrigated the wound. We then closed the wound with 0 Vicryl in the fascial tissues, 2-0 Monocryl in the subcutaneous tissues, and the skin was closed with skin dillon. This was followed by Dermabond and Prineo. Attention was then directed to the medial aspect of the ankle. Once again, we used fluoroscopy to determine the appropriate level of the incision as well as palpation over the fracture. The patient had a large fracture blister proximal to the area of the planned incision. This was unroofed and cleaned. Dressing included SilvaSorb and a 4 x 4. An incision was made over the site of the fracture. 2 guidewires were placed in appropriate position as visualized in AP and lateral planes. We were then able to place cannulated headless Optifix screws, each of which was 46 mm in length over the cannulated screws to hold the medial malleolus nicely reduced. Throughout the surgical procedure and at the conclusion of the procedure we did use fluoroscopy. Fluoroscopy was utilized to determine appropriate positioning of the plate as well as the fractures. At the conclusion we obtained AP and lateral images demonstrating the fracture was anatomically reduced. The medial incision was closed with 2-0 Monocryl in the subcutaneous tissues. The skin was then closed with skin dillon. Once again, Prineo was used over the dillon. Sterile dressing was placed consisting of Dermabond and Prineo as described, 4 x 4's, ABDs, sterile soft roll and an Nemesio wrap. The patient was placed in a Cam Walker boot and is to remain nonweightbearing. The procedure was well tolerated without complication. Tourniquet time was 18 minutes at 250 mmHg. The patient will be discharged home to follow-up in my office as scheduled. Associated Problem List Diagnoses (1) Trimalleolar fracture of right ankle: Qualifiers: Encounter type: initial encounter Fracture type: closed Qualified Code(s): S82.851A - Displaced trimalleolar fracture of right lower leg, initial encounter for closed fracture
--- NOTE | 2020-11-08 16:10 | PC.PT ---
Dr Sargent verbally ordered air walk boot fit to patient.
== END 2020-11-08 16:33 | disposition home or self-care (01) ==
PROVIDERS: PCP Family Medicine; Visit Provider Specialist
PROC: (CPT 27822; principal; 2020-11-08 13:15)
DX: S82.851A Displaced trimalleolar fracture of right lower leg, initial encounter for closed fracture (principal); W01.0XXA Fall on same level from slipping, tripping and stumbling without subsequent striking against object, initial encounter; Y92.828 Other wilderness area as the place of occurrence of the external cause; I25.10 Atherosclerotic heart disease of native coronary artery without angina pectoris; I11.0 Hypertensive heart disease with heart failure; I50.9 Heart failure, unspecified; Z95.1 Presence of aortocoronary bypass graft; I10 Essential (primary) hypertension; E78.5 Hyperlipidemia, unspecified; E03.9 Hypothyroidism, unspecified; Z79.82 Long term (current) use of aspirin
CPT/HCPCS: 27822; 64450; 73600; 76000; 76942; 81003; 93005; 96365; 97760; C1713; J1100; J2704; J2795; J3010; J3370; J7030; L4361

== ENCOUNTER → 2020-11-25 13:07 | Outpatient (BNVA) | payer MEDICARE, BC, SELFPAY | PROVIDERS: PCP Family Medicine; Visit Provider Specialist | DX: Z48.89 Encounter for other specified surgical aftercare (principal); S82.851D Displaced trimalleolar fracture of right lower leg, subsequent encounter for closed fracture with routine healing; W01.0XXD Fall on same level from slipping, tripping and stumbling without subsequent striking against object, subsequent encounter; Y92.828 Other wilderness area as the place of occurrence of the external cause | CPT/HCPCS: 73610 ==

== ENCOUNTER → 2020-12-09 14:52 | Outpatient (BNVA) | payer MEDICARE, BC, SELFPAY | PROVIDERS: PCP Family Medicine; Visit Provider Specialist | DX: S82.851D Displaced trimalleolar fracture of right lower leg, subsequent encounter for closed fracture with routine healing (principal); W01.0XXD Fall on same level from slipping, tripping and stumbling without subsequent striking against object, subsequent encounter; Y92.828 Other wilderness area as the place of occurrence of the external cause; Z46.89 Encounter for fitting and adjustment of other specified devices; X58.XXXD Exposure to other specified factors, subsequent encounter; Z98.890 Other specified postprocedural states | CPT/HCPCS: 73610; 97760; L1902 ==

== ENCOUNTER 2020-12-09 16:05 | Outpatient (CLI) | payer MEDICARE, BC, SELFPAY | END 2020-12-09 16:06 | disposition home or self-care (01) | LOC: SPT 16:06 | PROVIDERS: PCP Family Medicine; Visit Provider Specialist | DX: Z46.89 Encounter for fitting and adjustment of other specified devices (principal); S82.851D Displaced trimalleolar fracture of right lower leg, subsequent encounter for closed fracture with routine healing; X58.XXXD Exposure to other specified factors, subsequent encounter; Z98.890 Other specified postprocedural states | CPT/HCPCS: 97760; L1902 ==

== ENCOUNTER → 2020-12-12 10:02 | Outpatient (BNVA) | payer MEDICARE, BC, SELFPAY | PROVIDERS: PCP Family Medicine; Visit Provider Specialist | DX: M25.551 Pain in right hip (principal) | CPT/HCPCS: 73502 ==

== ENCOUNTER → 2020-12-26 11:29 | Outpatient (BNVA) | payer MEDICARE, BC, SELFPAY | PROVIDERS: PCP Family Medicine; Visit Provider Specialist | DX: S82.851D Displaced trimalleolar fracture of right lower leg, subsequent encounter for closed fracture with routine healing (principal); X58.XXXD Exposure to other specified factors, subsequent encounter; Z98.890 Other specified postprocedural states | CPT/HCPCS: 73610 ==

== ENCOUNTER → 2021-01-15 10:57 | Outpatient (BNVA) | payer MEDICARE, BC, SELFPAY | PROVIDERS: PCP Family Medicine; Visit Provider Specialist | DX: S82.851D Displaced trimalleolar fracture of right lower leg, subsequent encounter for closed fracture with routine healing (principal); X58.XXXD Exposure to other specified factors, subsequent encounter; Z98.890 Other specified postprocedural states | CPT/HCPCS: 73610 ==

== ENCOUNTER 2021-01-23 15:14 | Outpatient (CLI) | payer MEDICARE, BC, SELFPAY ==
--- NOTE | 2021-01-23 15:20 | MM_ITS ---
WS: [id number] BILATERAL DIGITAL SCREENING MAMMOGRAPHY WITH CAD CLINICAL INFORMATION: SCREENING HISTORY: Screening mammogram. No current complaints. COMPARISON: January 02, 2020 TECHNIQUE: Bilateral CC and MLO views. FINDINGS: Scattered fibroglandular densities bilaterally. Cardiac pacer. Stable vascular calcification. No susp icious focal mass, asymmetry, calcifications, or architectural distortion. No evidence of malignancy. MM/[place] [id number] IMPRESSION: BI-RADS: 2-Benign FOLLOW UP: 1 Year Follow-up Recommend return to annual screening mammography.
== END 2021-01-23 15:15 | disposition home or self-care (01) ==
PROVIDERS: PCP Family Medicine; Visit Provider Family Medicine
DX: Z12.31 Encounter for screening mammogram for malignant neoplasm of breast (principal)
CPT/HCPCS: 77067

== ENCOUNTER → 2021-02-10 09:04 | Outpatient (BNVA) | payer MEDICARE, BC, SELFPAY | PROVIDERS: PCP Family Medicine; Visit Provider Specialist | DX: S82.851D Displaced trimalleolar fracture of right lower leg, subsequent encounter for closed fracture with routine healing (principal); S82.51XD Displaced fracture of medial malleolus of right tibia, subsequent encounter for closed fracture with routine healing; X58.XXXD Exposure to other specified factors, subsequent encounter | CPT/HCPCS: 73610 ==

== ENCOUNTER → 2021-07-29 12:36 | Outpatient (BNVA) | payer MEDICARE, BC, SELFPAY | PROVIDERS: PCP Family Medicine; Visit Provider Otolaryngology | DX: H90.0 Conductive hearing loss, bilateral (principal); H61.23 Impacted cerumen, bilateral; Z79.891 Long term (current) use of opiate analgesic | CPT/HCPCS: 69210; 99212 ==

== ENCOUNTER 2021-11-03 11:26 | Outpatient (CLI) | payer MEDICARE, BC, SELFPAY ==
--- NOTE | 2021-11-03 12:00 | USCV_ITS ---
Theresa Andrew Age: 71 Gender: F : 1950 Exam Date: 11/03/2021 12:00 Ordering Phys: Karla Joe XX Technologist: Lanette Bennett Exam Location: [facility] Indication: CHF, BP: / HR: 59 Rhythm: Sinus Technical Quality: Adequate MEASUREMENTS (Male / Female) Normal Values 2D ECHO LV Diastolic Diameter PLAX 5.5 cm 4.2 - 5.9 / 3.9 - 5.3 cm LV Systolic Diameter PLAX 4.6 cm IVS Diastolic Thickness 0.7 cm 0.6 - 1.0 / 0.6 - 0.9 cm IVS Systolic Thickness 0.6 cm LVPW Diastolic Thickness 0.8 cm 0.6 - 1.0 / 0.6 - 0.9 cm LVPW Systolic Thickness 1.1 cm LVOT Diameter 2.2 cm LV Ejection Fraction 2D Teich 33.0 % LV Ejection Fraction MOD 2C 73.3 % LV Ejection Fraction 2C AL 72.2 % LA Diameter 3.2 cm LA Width 4.0 cm LA Height 5.3 cm RA Width 4.8 cm RA Height 5.5 cm Aorta at Sinotubular Diameter 2.5 cm IVC Diameter 1.7 cm DOPPLER AV Peak Velocity 101.0 cm/s LVOT Peak Velocity 101.0 cm/s AV Area Cont Eq vti 3.9 cm squared AV Area Cont Eq pk 3.8 cm squared MV Peak Velocity 111.0 cm/s MV Area PHT 4.6 cm squared Mitral E to A Ratio 1.4 MV E' Velocity 63.0 cm/s Mitral E to MV E' Ratio 12.3 Mitral E to LV E' Lateral Ratio 13.4 Mitral E to LV E' Septal Ratio 11.4 TR Peak Velocity 176.3 cm/s TR Peak Gradient 12.4 mmHg Right Atrial Pressure 3.0 mmHg Pulmonary Artery Systolic Pressu 15.4 mmHg PV Peak Velocity 60.0 cm/s RV Acceleration Time 0.1 s FINDINGS Left Ventricle Mildly dilated left ventricle. Grossly LV systolic function is moderately reduced. Regional wall motion abnormalities cannot be assessed because of poor ultrasonic windows. Right Ventricle Grossly normal Right Atrium The right atrium is normal in size. Left Atrium Grossly normal Mitral Valve Thickened mitral valve without significant stenosis or prolapse. There is mild mitral regurgitation. Aortic Valve Grossly normal without significant stenosis. There is no aortic regurgitation. Tricuspid Valve Structurally normal tricuspid valve without significant stenosis. Mild tricuspid regurgitation. Pulmonary artery systolic pressure is normal. Pulmonic Valve Mild pulmonic regurgitation Pericardium Trivial pericardial effusion is seen Aorta Normal ascending aorta dimension. IVC CONCLUSIONS Technically limited quality echocardiogram because of poor ultrasonic windows. Mildly dilated left ventricle. LV systolic function is moderately reduced. Regional wall motion abnormalities cannot be assessed because of poor ultrasonic windows Thickened mitral valve. Mild mitral regurgitation. Mild tricuspid regurgitation. Mild pulmonic regurgitation. Trivial pericardial effusion is seen. Compared to prior echocardiogram from 11/25/2015, patient now has trivial pericardial effusion Daniel Underwood MD (Electronically Signed) Final Date: 12 November 2021 15:06 S
== END 2021-11-03 11:27 | disposition home or self-care (01) ==
PROVIDERS: PCP Family Medicine; Visit Provider Internal Medicine
DX: Z95.810 Presence of automatic (implantable) cardiac defibrillator (principal); I42.9 Cardiomyopathy, unspecified; I08.1 Rheumatic disorders of both mitral and tricuspid valves
CPT/HCPCS: 93306

== ENCOUNTER → 2022-02-04 10:09 | Outpatient (BNVA) | payer MEDICARE, BC, SELFPAY | PROVIDERS: PCP Family Medicine; Visit Provider Otolaryngology | DX: H61.23 Impacted cerumen, bilateral (principal) | CPT/HCPCS: 99213 ==

== ENCOUNTER 2022-02-12 11:33 | Outpatient (CLI) | payer MEDICARE, BC, SELFPAY ==
--- NOTE | 2022-02-12 11:38 | MM_ITS ---
WS: [id number] BILATERAL SCREENING DIGITAL TOMOSYNTHESIS MAMMOGRAM WITH CAD HISTORY: SCREENING COMPARISON: 01/23/2021, 01/02/2020 Bilateral CC and MLO views with tomosynthesis and synthetic mammography submitted. Computer aided det ection analyzed. Breast composition: There are scattered areas of fibroglandular density. No suspicious masses, microc alcifications or architectural distortion. Benign vascular calcifications. Stable asymmetry inferior LEFT breast seen on the MLO projection. MM/[place] [id number] IMPRESSION: BI-RADS: 2-Benign FOLLOW UP: 1 Year Follow-up
== END 2022-02-12 11:34 | disposition home or self-care (01) ==
PROVIDERS: PCP Family Medicine; Visit Provider Family Medicine
DX: Z12.31 Encounter for screening mammogram for malignant neoplasm of breast (principal)
CPT/HCPCS: 77063; 77067

== ENCOUNTER 2022-03-30 04:49 | Emergency (ER) | payer MEDICARE, BC, SELFPAY ==
[2022-03-30 04:54] VITALS: BP 156/91; PULSE 63; RESP 20; TEMP 36.9; O2SAT 98; BMI 34.3
--- NOTE | 2022-03-30 05:21 | XRR_ITS ---
PROCEDURE INFORMATION: Exam: XR Chest Exam date and time: 03/30/2022 5:27 AM Age: 71 years old Clinical indication: Pain; Chest pressure and radiating; Prior surgery; Surgery date: 6+ months; Surgery type: Pace/ defib; Additional info: Cp TECHNIQUE: Imaging protocol: Radiologic exam of the chest. Views: 1 view. COMPARISON: CR XR chest 2V* [id number] 07/19/2020 10:42 AM FINDINGS: Tubes, catheters and devices: The heart is large with CABG, atherosclerosis, left-sided pacing device. Lungs: Minor left lung base atelectasis or scarring. No new consolidation or sizable effusion. Pleural spaces: No pneumothorax Heart/Mediastinum: Large heart with CABG, see above. Bones/joints: Unremarkable. XR/XR chest 1V portable [id number] IMPRESSION: Stable chest from 07/19/2020. No evidence of CHF.
[2022-03-30 05:38] LABS: INR 0.86 (0.8-1.2)
[2022-03-30] MEDS: morphine 4 mg/mL SDV 1 mL IVP (05:38)
[2022-03-30] MEDS: ondansetron 2 mg/ML SDV 2 mL 4 MG IVP (05:38)
[2022-03-30 05:39] VITALS: BP 132/71; PULSE 61; RESP 15; O2SAT 98
[2022-03-30 05:39] LABS: Basophils # 0.1 10^3/uL (0.0-0.1); Eosinophils # 0.3 10^3/uL (0.0-0.8); Eosinophils % 4.3 %; Hematocrit 43.7 % (37.0-47.0); Lymphocytes # 1.5 10^3/uL (0.8-4.8); Mean Corpuscular HGB Conc 34.3 g/dL (30.0-36.0); Mean Corpuscular Hemoglobin 34.2 pg (28.0-34.0); Mean Corpuscular Volume 99.5 fl (81-99); Monocytes # 0.6 10^3/uL (0.2-0.9); Monocytes % 10.9 %; Neutrophils # 3.31 10^3/uL (1.8-7.7); Neutrophils % 57.5 %; Nucleated Red Blood Cells % 0 %; Partial Thromboplastin Time 25.8 SECONDS (23.9-36.7); Platelet Count 255 10^3/cmm (130-400); Red Blood Count 4.39 10^6/uL (4.1-5.3); Red Cell Distribution Width 12.7 % (12.1-15.1); White Blood Count 5.8 10^3/uL (4.0-10.0)
[2022-03-30 05:41] LABS: D Dimer 0.57 ug/mIFEU (0-0.59)
[2022-03-30 05:54] LABS: Alanine Aminotransferase 28 U/L (0-33); Albumin Level 4.3 g/dL (3.5-5.2); Alkaline Phosphatase 74 U/L (35-105); Aspartate Amino Transferase 27 U/L (0-32); Blood Urea Nitrogen 13 mg/dL (8-23); Calcium 9.4 mg/dL (8.5-10.5); Carbon Dioxide 22 mmol/L (22-29); Chloride 102 mmol/L (98-107); Creatine Phosphokinase 111 U/L (26-192); Globulin 2.3 g/dL (1.3-4.6); Glucose 113 mg/dL (65-115); Osmolality Calculated 281 mOsm/kg (285-295); Sodium 135 mmol/L (136-145); Total Bilirubin 0.9 mg/dL (0.15-1.2); Total Protein 6.6 g/dL (6.6-8.7)
[2022-03-30 05:58] LABS: Anion Gap 15.1 (5-19); Potassium 4.1 mmol/L (3.5-5.1)
[2022-03-30 06:00] VITALS: BP 132/72; PULSE 60; RESP 12; O2SAT 98
--- NOTE | 2022-03-30 06:06 | W.ED.BACK ---
Documented by User: Darci Nolen DO 03/30/22 06:41 HPI - Back Pain/Injury General: Chief Complaint: Back Pain/Injury Stated Complaint: Chest Pains Time Seen by Provider: 03/30/22 05:05 Source: patient History of Present Illness: 71-year-old female with a history of coronary disease and heart failure. She awoke around 3 AM with chest discomfort, but mainly upper back discomfort. She notes that her and her had COVID a couple of weeks ago, and she has persisted with the cough. Not much sputum production. No fever. She thought this pain may be reflux, but was not sure, and wanted to make sure it was not her heart. She took 3 nitroglycerin at home without improvement, but they had last spring. Onset (ago): hour(s) Timing: constant Severity: moderate Similar Symptoms Previously: No Quality: aching Location: thoracic spine Radiation: chest Exacerbating factors: none Relieving factors: none Context: other (Woke with symptoms) Associated symptoms: Deny abdominal pain, difficulty walking, fever(s), syncope, tingling/numbness/burning or vomiting Treatments prior to arrival: other medications Review of Systems Const: Denies: fever(s) ENMT: Denies: throat pain Card: Reports: chest pain; Denies: palpitations or syncope Resp: Reports: non-productive cough; Denies: dyspnea GI: Denies: abdominal pain or vomiting Musc: Reports: back pain; Denies: extremity pain Skin/Breast: Denies: rash Neuro: Denies: difficulty walking [facility] PFSH: Medical History (Updated 03/30/22 @ 08:23 by Rene Daniel DO) Cardiomyopathy Ischemic History of ear infections as a child HTN (hypertension) Hyperlipidemia Hypothyroidism Social History Smoking and tobacco status: never smoked Second hand smoke exposure: No Alcohol intake: never Household members: spouse Marital status: Special radha needs: No Physical Exam Const: COMMON NORMALS: no acute distress GENERAL APPEARANCE: cooperative; not ill appearing and not frail appearing HENMT: COMMON NORMALS: normocephalic, atraumatic and Normal external nose present HEAD & SCALP: normocephalic and atraumatic FACE & SINUS: normal facial exam and face symmetric NOSE: Normal external nose present Eye: COMMON NORMALS: Equal, round and reactive pupils present and EOMs intact bilaterally PUPIL: Yes Equal, round and reactive pupils present Neck/C-Spine: GENERAL: Yes trachea midline Chest: CHEST: Yes Symmetrical chest wall rise Resp: COMMON NORMALS: normal respiratory effort, No retractions, No use of accessory muscles and clear to auscultation bilaterally AUSCULTATION: clear to auscultation bilaterally Cardio: COMMON NORMALS: regular rate and regular rhythm RATE: regular rate RHYTHM: regular rhythm GI: COMMON NORMALS: Normal to inspection, nondistended, normoactive bowel sounds present Back/Pelvis: OTHER: Examination of the thoracic spine reveals no deformity. No reproducible tenderness Extremity: COMMON NORMALS: no pedal edema Neuro: PEGGY COMA SCALE: document GCS findings Peggy coma scale eye opening: Spontaneous [place] coma scale verbal response: Orientated Peggy coma scale motor response: Obey commands [place] coma scale total score: 15 SENSORY EXAM: Yes extremities (intact) Psych: COMMON NORMALS: speech normal SPEECH: Yes normal speech Skin: COMMON NORMALS: no rashes or lesions noted GENERAL SKIN EXAM: no rashes or lesions noted Course Vital Signs: Vital signs: Vital Signs Temperature 98.4 F 03/30/22 04:54 Pulse Rate 61 03/30/22 07:00 Respiratory Rate 18 03/30/22 07:00 Blood Pressure 136/70 03/30/22 07:00 Pulse Oximetry 95 03/30/22 07:00 MDM - Back Pain/Injury Medical Decision Making 71-year-old female with a history of coronary disease and cardiomyopathy. She complains mainly of upper thoracic discomfort. She is given morphine and Zofran for this. Her vitals are normal. EKG shows a sinus rhythm with normal axis, there is a intraventricular conduction delay. No significant ST elevation or T wave inversion. CBC is normal. BMP is not remarkable. Chest x-ray is nonacute. Other laboratories pending. First troponin is 9. Will await second troponin and likely allow home if neg. D-dimer is normal. BNP is only minimally elevated. Patient will be checked out to Dr. Daniel at shift change pending second troponin and symptom resolution. Labs 03/30/22 05:06 03/30/22 05:06 Radiology Impressions Chest X-Ray 03/30/22 05:21 IMPRESSION: Stable chest from 07/19/2020. No evidence of CHF. Laboratory Results WBC Cancelled 03/30/22 05:15 Corrected WBC Cancelled 03/30/22 05:15 RBC Cancelled 03/30/22 05:15 Hgb Cancelled 03/30/22 05:15 Hct Cancelled 03/30/22 05:15 MCV Cancelled 03/30/22 05:15 MCH Cancelled 03/30/22 05:15 MCHC Cancelled 03/30/22 05:15 RDW Cancelled 03/30/22 05:15 Plt Count Cancelled 03/30/22 05:15 MPV Cancelled 03/30/22 05:15 Gran % Cancelled 03/30/22 05:15 Neut % (Auto) Cancelled 03/30/22 05:15 Lymph % (Auto) Cancelled 03/30/22 05:15 [place] % (Auto) Cancelled 03/30/22 05:15 Eos % (Auto) Cancelled 03/30/22 05:15 Baso % (Auto) Cancelled 03/30/22 05:15 Neut # (Auto) Cancelled 03/30/22 05:15 Lymph # (Auto) Cancelled 03/30/22 05:15 [place] # (Auto) Cancelled 03/30/22 05:15 Eos # (Auto) Cancelled 03/30/22 05:15 Baso # (Auto) Cancelled 03/30/22 05:15 Absolute Gran (auto) Cancelled 03/30/22 05:15 Nucleated RBC % (auto) Cancelled 03/30/22 05:15 Nucleated RBCs # Cancelled 03/30/22 05:15 PT 12.00 SECONDS (12.1-14.9) L 03/30/22 05:06 INR 0.86 (0.8-1.2) 03/30/22 05:06 APTT 25.8 SECONDS (23.9-36.7) 03/30/22 05:06 D-Dimer 0.57 ug/mIFEU (0-0.59) 03/30/22 05:06 Sodium 135 mmol/L (136-145) L 03/30/22 05:06 Potassium 4.1 mmol/L (3.5-5.1) 03/30/22 05:06 Chloride 102 mmol/L (98-107) 03/30/22 05:06 Carbon Dioxide 22 mmol/L (22-29) 03/30/22 05:06 Anion Gap 15.1 (5-19) 03/30/22 05:06 BUN 13 mg/dL (8-23) 03/30/22 05:06 Creatinine 0.8 mg/dL (0.5-0.9) 03/30/22 05:06 GFR Calculation Not Reportable 03/30/22 05:06 Glucose 113 mg/dL (65-115) 03/30/22 05:06 Calculated Osmolality 281 mOsm/kg (285-295) L 03/30/22 05:06 Calcium 9.4 mg/dL (8.5-10.5) 03/30/22 05:06 Total Bilirubin 0.9 mg/dL (0.15-1.2) 03/30/22 05:06 AST 27 U/L (0-32) 03/30/22 05:06 ALT 28 U/L (0-33) 03/30/22 05:06 Alkaline Phosphatase 74 U/L (35-105) 03/30/22 05:06 Creatine Kinase 111 U/L (26-192) 03/30/22 05:06 Troponin T Baseline 9 ng/L (0-10) 03/30/22 05:06 Troponin T 120 Minute 9.22 ng/L (0-10) 03/30/22 07:09 Delta Troponin T 0.22 ABS# (0-10) 03/30/22 07:09 NT-Pro-B Natriuret Pep 535 pg/mL (0-125) H 03/30/22 05:06 Total Protein 6.6 g/dL (6.6-8.7) 03/30/22 05:06 Albumin 4.3 g/dL (3.5-5.2) 03/30/22 05:06 Globulin 2.3 g/dL (1.3-4.6) 03/30/22 05:06 Discharge Plan Discharge Patient Disposition: Home Clinical Impression: Back pain, thoracic, Subconjunctival hemorrhage of left eye Condition: Stable Prescriptions: New tramadol 50 mg tablet 50 mg PO Q8H PRN (Reason: pain) Qty: 10 0RF No Action furosemide 40 mg tablet 40 mg PO DAILY PRN (Reason: Edema) coenzyme Q10 [Co Q-10] 10 mg capsule 10 mg PO TID pantoprazole 20 mg tablet,delayed release (DR/EC) 20 mg PO DAILY aspirin 81 mg Tablet,Delayed Release (Dr/Ec) 81 mg PO DAILY levothyroxine [Synthroid] 100 mcg tablet 100 mcg PO DAILY citalopram 20 mg tablet 20 mg PO DAILY metoprolol succinate 25 mg tablet extended release 24 hr 25 mg PO DAILY rosuvastatin [Crestor] 5 mg Tablet 5 mg PO DAILY Entresto 24-26 mg Tablet 1 tab PO BID Discharge Orders: Discharge ED (Routine); Ordered 03/30/22 Ordered By: Rene Daniel Referrals: Berta Carroll MD [Primary Care Provider] - 1-3 days Discharge Diet: Usual diet Discharge Activity: Increase activity as tolerated Patient Instructions: Back Pain (ED), Opioid Safety, Pain Management Activity Restrictions/Additional Instructions: You are seen for thoracic back pain today. Your EKGs and heart enzymes as well as your chest x-ray were all normal. Return for worsening chest discomfort, upper back discomfort, shortness of breath, fever, any other concerning symptoms. Sign Out Sign Out Data: Patient Sign Out occurred on 03/30/22 at 07:00. Patient's care was discussed, and care was transferred from to Rene Daniel DO. 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 for Chg Fwd Exam Comprehensive Documented by User: Rene Daniel DO 03/30/22 08:24 HPI - Back Pain/Injury General: Chief Complaint: Back Pain/Injury Stated Complaint: Chest Pains Time Seen by Provider: 03/30/22 05:05 [facility] ED PFS: Medical History (Updated 03/30/22 @ 08:23 by Rene Daniel DO) Cardiomyopathy Ischemic History of ear infections as a child HTN (hypertension) Hyperlipidemia Hypothyroidism Social History Smoking and tobacco status: never smoked Second hand smoke exposure: No Alcohol intake: never Household members: spouse Marital status: Special radha needs: No Physical Exam Neuro: PEGGY COMA SCALE: document GCS findings [place] coma scale total score: 15 Course Vital Signs: Vital signs: Vital Signs Temperature 98.4 F 03/30/22 04:54 Pulse Rate 61 03/30/22 07:00 Respiratory Rate 18 03/30/22 07:00 Blood Pressure 136/70 03/30/22 07:00 Pulse Oximetry 95 03/30/22 07:00 MDM - Back Pain/Injury Medical Decision Making 71-year-old female with a history of coronary disease and cardiomyopathy. She complains mainly of upper thoracic discomfort. She is given morphine and Zofran for this. Her vitals are normal. EKG shows a sinus rhythm with normal axis, there is a intraventricular conduction delay. No significant ST elevation or T wave inversion. CBC is normal. BMP is not remarkable. Chest x-ray is nonacute. Other laboratories pending. First troponin is 9. Will await second troponin and likely allow home if neg. D-dimer is normal. BNP is only minimally elevated. Patient will be checked out to Dr. Daniel at shift change pending second troponin and symptom resolution. Care assumed at change of shift second EKG does not show any changes atrial pacemaker normal sinus rhythm no acute ST changes. Her repeat troponin was unremarkable no significant delta change. Chest x-ray was normal D-dimer was negative. She has no urinary tract symptoms she has been coughing and often noted at the bedside she has a subconjunctival hemorrhage on the left she has a residual cough for COVID. Pain is in the mid to low back no CVA tenderness on exam mildly reproducible with palpation. We will go ahead and discharge her home gave her tramadol to use for pain if pain persists recheck. Appears to be noncardiac suspect it is related to her cough which given the fact that she coughed enough to create a subconjunctival hemorrhage certainly be enough to strain some back muscles in the process. Medical Records I reviewed the patient's medical records. Labs I reviewed the patient's lab results. 03/30/22 05:06 03/30/22 05:06 Radiology Impressions Chest X-Ray 03/30/22 05:21
[2022-03-30 06:09] LABS: Troponin(5th) Baseline 9 ng/L (0-10)
[2022-03-30 06:25] LABS: NT Pro B Type Natriuretic Pept 535 pg/mL (0-125)
[2022-03-30] MEDS: lidocaine 2% viscous 15 ML, aluminum-mag hydrox-simethicon 30 ML, sucralfate oral liq 1 GM PO (06:56)
[2022-03-30 07:00] VITALS: BP 136/70; PULSE 61; RESP 18; O2SAT 95
--- NOTE | 2022-03-30 07:21 | ECG_ITS ---
[facility] Test Date: 2022-03-30 Pat Name: Theresa Andrew Department: Room: Gender: Female Shield Operator: : 1950 Requested By: Darci Acevedo Order Number: [id number] Kenrick MD: Ashwin Landaverde M.D. Measurements Intervals [place] Rate: 60 P: 4 UT: 303 QRS: 4 QRSD: 97 T: 67 QT: 430 QTc: 430 Interpretive Statements ELECTRONIC ATRIAL PACEMAKER POSSIBLE RIGHT VENTRICULAR CONDUCTION DELAY [RSR (QR) IN V1/V2] NONSPECIFIC T-WAVE ABNORMALITY ABNORMAL RHYTHM ECG Compared to ECG 11/08/2020 12:23:24 No significant changes Electronically Signed On 03-30-2022 15:02:38 STONE CARRIAGE OPERATOR by Ashwin Landaverde M.D. [id number]
[2022-03-30 07:44] LABS: Troponin 5 2HR 9.22 ng/L (0-10)
[2022-03-30 07:58] LABS: Troponin 5 2HR Delta 0.22 ABS# (0-10)
[2022-03-30 08:00] VITALS: BP 118/70; PULSE 60; RESP 18; O2SAT 97
[2022-03-30 08:40] VITALS: BP 110/64; PULSE 59; RESP 16; O2SAT 96
== END 2022-03-30 08:42 | disposition home or self-care (01) ==
PROVIDERS: Emergency Medicine; Emergency Provider Family Medicine; PCP Family Medicine
DX: M54.6 Pain in thoracic spine (principal); H11.32 Conjunctival hemorrhage, left eye; Z79.82 Long term (current) use of aspirin; I10 Essential (primary) hypertension; E78.5 Hyperlipidemia, unspecified
CPT/HCPCS: 71045; 80053; 82550; 83880; 84484; 85025; 85378; 85610; 85730; 93005; 96374; 96375; 99285; J2270; J2405

== ENCOUNTER 2022-07-24 13:05 | Outpatient (CLI) | payer MEDICARE, SELFPAY ==
--- NOTE | 2022-07-24 13:29 | USCV_ITS ---
Theresa Andrew Age: 71 Gender: F : 1950 Exam Date: 07/24/2022 13:47 Ordering Phys: Shanna Brown MD Technologist: Exam Location: [facility] Indication: CARDIOMYOPATHY HX OF CA BP: 132 / 72 HR: 60 Rhythm: Sinus Technical Quality: Difficult MEASUREMENTS (Male / Female) Normal Values 2D ECHO LVOT Diameter 2.0 cm LV Ejection Fraction MOD 2C 52.7 % LV Ejection Fraction 2C AL 53.1 % LA Diameter 4.0 cm M-MODE Aortic Annulus Diameter 2.8 cm LA Ao Ratio MM 1.4 MV E Point Septal Separation 1.3 cm DOPPLER AV Peak Velocity 78.0 cm/s MV Area PHT 5.0 cm squared Mitral E to A Ratio 0.8 MV E' Velocity 45.0 cm/s Mitral E to MV E' Ratio 11.5 Mitral E to LV E' Lateral Ratio 12.0 Mitral E to LV E' Septal Ratio 11.2 TR Peak Velocity 171.0 cm/s TR Peak Gradient 11.7 mmHg TV Peak E Velocity 167.0 cm/s Right Atrial Pressure 3.0 mmHg Pulmonary Artery Systolic Pressu 14.7 mmHg FINDINGS Left Ventricle Technically limited quality echocardiogram because of poor ultrasonic windows. LV systolic function is moderately reduced with a EF of 35 to 40%. Accurate assessment of regional wall motion abnormalities is not possible because of limited visualization. Grade 1 diastolic dysfunction Right Ventricle Normal in size and function Right Atrium Not well visualized Left Atrium Not well visualized Mitral Valve Structurally normal mitral valve. Mild mitral regurgitation. Aortic Valve Grossly normal aortic valve. Mild aortic regurgitation. Tricuspid Valve Trace tricsupid regurgitation. Insufficient TR jet to calculate RVSP Pulmonic Valve Not well visualized. Mild pulmonic regurgitation. Pericardium Trace pericardial effusion Aorta Normal in size IVC Appears to be normal CONCLUSIONS Technically limited quality echocardiogram because of poor ultrasonic windows. LV systolic function is moderately reduced with EF of 35 to 40%. Grade 1 diastolic dysfunction Mild mitral regurgitation Mild aortic regurgitation Trace tricuspid regurgitation Mild pulmonic regurgitation Trace pericardial effusion Compared with prior echocardiogram from 11/03/2021, no significant changes are seen. Daniel Underwood MD (Electronically Signed) Final Date: 05 August 2022 17:36 S
[2022-07-24] MEDS: perflutren protein-a microsphr 0.22 mg/mL SDV 3 mL IV (14:51)
== END 2022-07-24 13:06 | disposition home or self-care (01) ==
PROVIDERS: PCP Family Medicine; Visit Provider Internal Medicine Interventional Cardiology
DX: I25.10 Atherosclerotic heart disease of native coronary artery without angina pectoris (principal); I42.9 Cardiomyopathy, unspecified; I10 Essential (primary) hypertension; E78.5 Hyperlipidemia, unspecified
CPT/HCPCS: C8929; Q9956

== ENCOUNTER → 2023-01-14 15:22 | Outpatient (BNVA) | payer MEDICARE, SELFPAY | PROVIDERS: PCP Family Medicine; Visit Provider Nurse Practitioner Family | DX: L82.1 Other seborrheic keratosis (principal); L57.8 Other skin changes due to chronic exposure to nonionizing radiation; L81.4 Other melanin hyperpigmentation; L30.8 Other specified dermatitis; L82.0 Inflamed seborrheic keratosis | CPT/HCPCS: 17110; 99213 ==

== ENCOUNTER → 2023-02-03 13:12 | Outpatient (BNVA) | payer MEDICARE, SELFPAY | PROVIDERS: PCP Family Medicine; Visit Provider Otolaryngology | DX: H61.23 Impacted cerumen, bilateral (principal) | CPT/HCPCS: 69210; 99212 ==

== ENCOUNTER 2023-02-15 10:04 | Outpatient (CLI) | payer MEDICARE, SELFPAY ==
--- NOTE | 2023-02-15 10:09 | MM_ITS ---
WS: [id number] BILATERAL SCREENING DIGITAL TOMOSYNTHESIS MAMMOGRAM WITH CAD HISTORY: SCREENING COMPARISON: 02/12/2022 and 01/23/2021 Bilateral CC and MLO views with tomosynthesis and synthetic mammography submitted. Computer aided det ection analyzed. Breast composition: There are scattered areas of fibroglandular density. No suspicious masses, microc alcifications or architectural distortion. There are a few scattered benign calcifications and arteri al calcifications. IMPRESSION: MM/[place] [id number] BI-RADS: 2-Benign FOLLOW UP: 1 Year Follow-up
== END 2023-02-15 10:05 | disposition home or self-care (01) ==
LOC: RAD 10:04
PROVIDERS: PCP Family Medicine; Visit Provider Family Medicine
DX: Z12.31 Encounter for screening mammogram for malignant neoplasm of breast (principal)
CPT/HCPCS: 77063; 77067

== ENCOUNTER 2023-10-12 13:18 | Outpatient (CLI) | payer MEDICARE, SELFPAY ==
--- NOTE | 2023-10-12 13:24 | XR_ITS ---
WS: [id number] SCREENING DEXA SCAN [employer] CLINICAL INFORMATION: ASYMPTOMATIC MENOPAUSAL STATE COMPARISON: 2020 FINDINGS: The L1-L4 bone mineral density measures 1.164 g/cm2. This corresponds to a T score score of -0.1 and Z score of 0.6. Left femoral neck bone mineral density measures 0.803 g/cm2. This corresponds to a T score of -1.6 an d Z score of -0.7. Right femoral neck bone mineral density measures 0.831 g/cm2. This corresponds to a T score -1.4of an d Z score of -0.5. Mean femoral neck bone mineral density measures 0.817 g/cm2. This corresponds to a T score of -1.5 an d Z score of -0.6. XR/XR DEXA axial skeleton* [id number] IMPRESSION: Normal bone mineralization lumbar spine. Osteopenia femoral necks. Patient's FRAX calculated 10 year probability for major osteoporotic fracture i s 17.6% and osteoporotic hip fracture is 3.5%. Bone marrow density lumbar spine increased 2.6% bone mineral density femoral necks increased 0.5%
== END 2023-10-12 13:19 | disposition home or self-care (01) ==
LOC: RAD 13:19
PROVIDERS: PCP Family Medicine; Visit Provider Family Medicine
DX: Z78.0 Asymptomatic menopausal state (principal); M85.852 Other specified disorders of bone density and structure, left thigh; M85.851 Other specified disorders of bone density and structure, right thigh
CPT/HCPCS: 77080

== ENCOUNTER → 2023-11-04 14:15 | Outpatient (BNVA) | payer MEDICARE, SELFPAY | PROVIDERS: PCP Family Medicine; Visit Provider Podiatrist Foot & Ankle Surgery | DX: M76.822 Posterior tibial tendinitis, left leg; M20.22 Hallux rigidus, left foot | CPT/HCPCS: 73630 ==

== ENCOUNTER 2023-11-04 15:15 | Outpatient (CLI) | payer MEDICARE, SELFPAY | END 2023-11-04 15:16 | disposition home or self-care (01) | LOC: SPT 15:19 | PROVIDERS: PCP Family Medicine; Visit Provider Podiatrist Foot & Ankle Surgery | DX: Z46.89 Encounter for fitting and adjustment of other specified devices (principal); M76.822 Posterior tibial tendinitis, left leg | CPT/HCPCS: 97760; L1902 ==

== ENCOUNTER → 2023-12-06 14:12 | Outpatient (BNVA) | payer MEDICARE, SELFPAY | PROVIDERS: PCP Family Medicine; Visit Provider Podiatrist Foot & Ankle Surgery | DX: M76.822 Posterior tibial tendinitis, left leg (principal); M20.22 Hallux rigidus, left foot | CPT/HCPCS: 99213 ==

== ENCOUNTER → 2024-01-17 13:07 | Outpatient (BNVA) | payer MEDICARE, SELFPAY | PROVIDERS: PCP Family Medicine; Visit Provider Nurse Practitioner Family | DX: L82.0 Inflamed seborrheic keratosis (principal); D18.01 Hemangioma of skin and subcutaneous tissue; L82.1 Other seborrheic keratosis; L81.5 Leukoderma, not elsewhere classified; L57.8 Other skin changes due to chronic exposure to nonionizing radiation; L81.4 Other melanin hyperpigmentation; L30.8 Other specified dermatitis; L91.8 Other hypertrophic disorders of the skin | CPT/HCPCS: 17110; 99214 ==

== ENCOUNTER 2024-03-30 13:16 | Outpatient (CLI) | payer MEDICARE, SELFPAY ==
--- NOTE | 2024-03-30 13:18 | CT_ITS ---
WS: [id number] CT ABDOMEN AND PELVIS WITH CONTRAST HISTORY: ABDOMINAL PAIN/DIARRHEA/CONSTIPATION TECHNIQUE: Imaging performed of the abdomen and pelvis with IV contrast. Single phase imaging of the abdomen. Coronal and sagittal reformats are submitted. All CT scans at [facility] one of these dose optimization techniques: automated exposure control; mA and/or kV adjustment per patient size (includes targeted exams where dose is matched to clinical indication); or iterative re construction. IV CONTRAST: Omnipaque 350; 100 mL IV. Oral contrast: Yes. DLP: 694.85 mGy.cm COMPARISON: 02/12/2010 Lower thorax: Lung bases are clear. Mild cardiomegaly. Prior CABG. Cardiac defibrillator is also note d. Small hiatal hernia. Liver/biliary system: Normal size with no intrahepatic dilatation. Gallbladder: Normally distended gallbladder. Layering stones noted within the gallbladder with no adj acent inflammation. Common bile duct is normal size. Pancreas: Normal size pancreas and pancreatic duct. No adjacent inflammation. Spleen: Normal size spleen. No mass or infarct. Adrenal glands: Normal. Right kidney: RIGHT kidney measures low normal size at 8.9 cm in length. Mild cortical thinning. No o bstruction. Left kidney: Normal. Aorta: Moderate atherosclerotic plaque. No aneurysm. Mild narrowing of the distal aorta. Calcificatio ns extend into the common iliac arteries. Calcification near the origins of the SMA and celiac axis b ut there is no high-grade stenosis. Lymphadenopathy: None. Free fluid: None. GI tract: Normally distended stomach. No small bowel obstruction. No appendicitis. Mild diffuse const ipation. Mild to moderate sigmoid diverticular burden. Numerous diverticula are present without acute diverticulitis. Sigmoid burden has increased since 2009. There is mild narrowing of the lumen. Abdominal wall: Small umbilical hernia. There is a small soft tissue nodule with fat in the supraumbi lical midline. I suspect this is probably an area of fat necrosis. Pelvis: No free fluid or adenopathy within the pelvis. Prior hysterectomy. No midline mass. Urinary b ladder is normal. Bones: Mild degenerative disc space narrowing at L4-5 and L5-S1. No destructive bone lesions. CT/CT abdomen pelvis w con* [id number] IMPRESSION: 1. Mild to moderate sigmoid diverticular burden without acute diverticulitis. Mild luminal narrowing. Diverticulosis burden has increased since 2009. 2. Prior hysterectomy. 3. Moderate atherosclerosis abdominal aorta with atherosclerotic plaque extend ing into the SMA and celiac axis. No high-grade stenosis identified. No GI trac t ischemia. 4. Cholelithiasis without acute cholecystitis.
[2024-03-30] MEDS: iohexol 350 mg/mL 500 mL Btl (per mL) PO (14:30)
[2024-03-30] MEDS: iohexol 350 mg/mL 500 mL Btl (per mL) IV (14:42)
== END 2024-03-30 13:17 | disposition home or self-care (01) ==
LOC: RAD 13:17
PROVIDERS: PCP Family Medicine; Visit Provider Family Medicine
DX: K57.90 Diverticulosis of intestine, part unspecified, without perforation or abscess without bleeding (principal); K44.9 Diaphragmatic hernia without obstruction or gangrene; I70.0 Atherosclerosis of aorta; K42.9 Umbilical hernia without obstruction or gangrene; R19.7 Diarrhea, unspecified; K59.00 Constipation, unspecified; Z95.1 Presence of aortocoronary bypass graft; Z90.710 Acquired absence of both cervix and uterus; Z95.810 Presence of automatic (implantable) cardiac defibrillator
CPT/HCPCS: 74177

== ENCOUNTER 2024-04-15 13:00 | Emergency (ER) | payer MEDICARE, SELFPAY ==
[2024-04-15 13:25] VITALS: BP 116/74; PULSE 120; RESP 16; TEMP 39.4; O2SAT 97; BMI 33.3
[2024-04-15 13:56] LABS: Rapid Strep A Test Negative (Negative)
--- NOTE | 2024-04-15 14:18 | XRR_ITS ---
PROCEDURE INFORMATION: Exam: XR Chest Exam date and time: 04/15/2024 2:23 PM Age: 73 years old Clinical indication: Cough and dyspnea; Prior surgery; Surgery date: 6+ months; Surgery type: Pacemaker, heart bypass; Additional info: Dyspnea/cough TECHNIQUE: Imaging protocol: Radiologic exam of the chest. Views: 1 view. COMPARISON: CR XR chest 1V portable [id number] 03/30/2022 5:27 AM FINDINGS: Tubes, catheters and devices: AICD/pacer device noted in the left chest wall. Lungs: Unremarkable. No consolidation. Pleural spaces: Unremarkable. No pleural effusion. No pneumothorax. Heart/Mediastinum: Sequela of prior CABG. No cardiomegaly. Bones/joints: Sternotomy wires noted. Visualized osseous structures are intact. XR/XR chest 1V portable [id number] IMPRESSION: No acute findings.
--- NOTE | 2024-04-15 14:18 | W.ED.URI ---
HPI - URI/Sore Throat General: Chief Complaint: Upper Respiratory Infection Stated Complaint: sore throat, congestion Time Seen by Provider: 04/15/24 14:17 History of Present Illness: 73-year-old female presents emergency room with complaint of sore throat cough congestion some diarrhea. Subjectively feels like she has been having a fever. Cough is nonproductive. No orthopnea no chest pain Associated symptoms: Deny abdominal pain, chills, chest pain or fever(s) Related Data Home Medications Medication Instructions Recorded Confirmed aspirin 81 mg tablet,delayed 81 mg PO DAILY 07/27/19 04/15/24 release citalopram 20 mg tablet 20 mg PO DAILY 07/27/19 04/15/24 levothyroxine 100 mcg tablet 100 mcg PO DAILY 07/27/19 04/15/24 (Synthroid) metoprolol succinate 25 mg 25 mg PO DAILY 07/27/19 04/15/24 tablet,extended release 24 hr sacubitril 24 mg-valsartan 26 mg 1 tab PO BID 07/27/19 04/15/24 tablet (Entresto) semaglutide (weight loss) 0.25 0.25 mg SUBCUT Q7D 04/15/24 04/15/24 mg/0.5 mL subcutaneous pen injector (Wegovy) Previous Rx's Medication Instructions Recorded Supinator to left #1 ea 11/04/23 nirmatrelvir 300 mg (150 mg See Rx Instructions PO .COMPLEX 04/15/24 x2)-ritonavir 100 mg tablet,dose #30 ea pack (Paxlovid) Allergies Allergy/AdvReac Type Severity Reaction Status Date / Time Penicillins Allergy ALGY-Swell Verified 04/15/24 13:28 Lip/Tongue/Throat Sulfa (Sulfonamide Allergy ALGY-Swell Verified 04/15/24 13:28 Antibiotics) Lip/Tongue/Throat Review of Systems Const: Denies: fever(s) or chills Card: Denies: chest pain Resp: Reports: dyspnea GI: Denies: abdominal pain : Denies: dysuria, urinary frequency or urinary urgency Musc: Denies: neck pain or back pain Skin/Breast: Denies: rash PFSH ED PFSH: Medical History History of ear infections as a child Cardiomyopathy Ischemic Hyperlipidemia HTN (hypertension) Hypothyroidism Social History Smoking and tobacco/nicotine status: never used tobacco/nicotine Second hand smoke exposure: No Alcohol intake: never Substance/Drug Use: never Household members: spouse Marital status: Special radha needs: No Physical Exam Const: GENERAL APPEARANCE: cooperative ORIENTATION/CONSCIOUSNESS: Yes awake, Yes oriented to person, Yes oriented to place and Yes oriented to time HENMT: COMMON NORMALS: normocephalic, atraumatic and hearing grossly normal bilaterally HEAD & SCALP: normocephalic and atraumatic Resp: COMMON NORMALS: normal respiratory effort, No retractions, No use of accessory muscles and clear to auscultation bilaterally AUSCULTATION: clear to auscultation bilaterally Cardio: COMMON NORMALS: regular rate, regular rhythm and No murmurs present (Cardio) RATE: regular rate RHYTHM: regular rhythm GI: COMMON NORMALS: Soft to palpation and No hepatosplenomegaly present AUSCULTATION: Yes normoactive bowel sounds PALPATION: Yes Soft to palpation, No Tenderness to palpation present (GI), No Guarding due to palpation present (GI) and Yes No hepatosplenomegaly present Extremity: COMMON NORMALS: normal to inspection, capillary refill normal, no clubbing, cyanosis or edema, no calf tenderness and no pedal edema Neuro: SENSORIUM/ORIENTATION: Yes oriented to person, Yes oriented to place and Yes oriented to time Skin: COMMON NORMALS: no rashes or lesions noted GENERAL SKIN EXAM: no rashes or lesions noted Course Vital Signs: Vital signs: Vital Signs Temperature 103.0 F H 04/15/24 13:25 Pulse Rate 95 04/15/24 15:46 Respiratory Rate 16 04/15/24 13:25 Blood Pressure 139/71 04/15/24 15:46 Pulse Oximetry 95 04/15/24 15:46 Oxygen Delivery Me thod Room Air 04/15/24 13:25 MDM - URI/Sore Throat Medical Decision Making Strep RSV and flu are negative patient is positive for COVID. Oxygen sats are normal and she does have significant temp. Will reviewed findings with her. Almost start her on Paxlovid. Discussed usual course of COVID. Supportive cares follow-up as needed Medical Records I reviewed the patient's medical records. Lab Data I reviewed the patient's lab results. 04/15/24 14:32 04/15/24 14:32 Radiology Impressions Chest X-Ray 04/15/24 14:18 IMPRESSION: No acute findings. Laboratory Results WBC 7.04 10^3/uL (3.29-11.43) 04/15/24 14:32 RBC 4.42 10^6/uL (3.85-5.65) 04/15/24 14:32 Hgb 15.10 g/dL (11.27-16.99) 04/15/24 14:32 Hct 42.3 % (36-47) 04/15/24 14:32 MCV 95.7 fl (85-98) 04/15/24 14:32 MCH 34.2 pg (27-33) H 04/15/24 14:32 MCHC 35.7 g/dL (30-55) 04/15/24 14:32 RDW 12.4 % (12.1-15.1) 04/15/24 14:32 Plt Count 174 10^3/cmm (157-399) 04/15/24 14:32 MPV 10.7 fL (7.4-10.4) H 04/15/24 14:32 Neut % (Auto) 79.6 % 04/15/24 14:32 Lymph % (Auto) 10.8 % 04/15/24 14:32 Randolph % (Auto) 9.1 % 04/15/24 14:32 Eos % (Auto) 0.0 % 04/15/24 14:32 Baso % (Auto) 0.1 % 04/15/24 14:32 Neut # (Auto) 5.60 10^3/uL (1.8-7.7) 04/15/24 14:32 Lymph # (Auto) 0.8 10^3/uL (0.8-4.8) 04/15/24 14:32 Randolph # (Auto) 0.6 10^3/uL (0.2-0.9) 04/15/24 14:32 Eos # (Auto) 0.0 10^3/uL (0.0-0.8) 04/15/24 14:32 Baso # (Auto) 0.0 10^3/uL (0.0-0.1) 04/15/24 14:32 Nucleated RBC % (auto) 0 % 04/15/24 14:32 Nucleated RBCs # 0.0 /100WBC 04/15/24 14:32 Sodium 132 mmol/L (136-145) L 04/15/24 14:32 Potassium 3.8 mmol/L (3.5-5.1) 04/15/24 14:32 Chloride 98 mmol/L (98-107) 04/15/24 14:32 Carbon Dioxide 17 mmol/L (22-29) L 04/15/24 14:32 Anion Gap 20.8 (5-19) H 04/15/24 14:32 BUN 9 mg/dL (8-23) 04/15/24 14:32 Creatinine 0.7 mg/dL (0.5-0.9) 04/15/24 14:32 GFR Calculation Not Reportable 04/15/24 14:32 Glucose 122 mg/dL (65-115) H 04/15/24 14:32 Calculated Osmolality 274 mOsm/kg (285-295) L 04/15/24 14:32 Calcium 8.7 mg/dL (8.5-10.5) 04/15/24 14:32 Total Bilirubin 0.9 mg/dL (0.15-1.2) 04/15/24 14:32 AST 21 U/L (0-32) 04/15/24 14:32 ALT 17 U/L (0-33) 04/15/24 14:32 Alkaline Phosphatase 68 U/L (35-105) 04/15/24 14:32 NT-Pro-B Natriuret Pep 685 pg/mL (0-125) H 04/15/24 14:32 Total Protein 6.4 g/dL (6.6-8.7) L 04/15/24 14:32 Albumin 3.9 g/dL (3.5-5.2) 04/15/24 14:32 Globulin 2.5 g/dL (1.3-4.6) 04/15/24 14:32 Coronavirus (PCR) Positive (Negative) A 04/15/24 13:47 Influenza A (PCR) Negative (Negative) 04/15/24 13:47 Influenza Type B (PCR) Negative (Negative) 04/15/24 13:47 RSV (PCR) Negative (Negative) 04/15/24 13:47 Group A Strep Rapid Negative (Negative) 04/15/24 13:47 All radiology interpretation(s) finalized by discharge Discharge Plan Discharge Patient Disposition: Home Clinical Impression: COVID-19 Condition: Stable Prescriptions: New Paxlovid 300 mg (150 mg x 2)-100 mg tablets,dose pack See Rx Instructions .ROUTE .COMPLEX Qty: 30 0RF Rx Instructions: take TWO 150 mg tablets of nirmatrelvir with ONE 100 mg tablet of ritonavir twice daily for 5 days No Action (DME) Supinator to left See Rx Instructions .Route .MEDSUPPLY Qty: 1 0RF Rx Instructions: As directed aspirin 81 mg Tablet,Delayed Release (Dr/Ec) 81 mg PO DAILY levothyroxine [Synthroid] 100 mcg tablet 100 mcg PO DAILY citalopram 20 mg tablet 20 mg PO DAILY metoprolol succinate 25 mg tablet extended release 24 hr 25 mg PO DAILY sacubitril-valsartan [Entresto] 24-26 mg Tablet 1 tab PO BID Wegovy 0.25 mg/0.5 mL pen injector 0.25 mg SUBCUT Q7D Discharge Orders: Discharge ED (Routine); Ordered 04/15/24 Ordered By: Rene Daniel Referrals: Berta Carroll MD [Primary Care Provider] - Discharge Diet: Usual diet Discharge Activity: Increase activity as tolerated Patient Instructions: COVID-19 (Coronavirus Disease 2019) (ED), Opioid Safety, Pain Management Activity Restrictions/Additional Instructions: Thank you for choosing [facility] for your healthcare needs today. It is very important that you follow up as instructed or that you return to the Emergency Department should you have concerns or if your condition changes or worsens in any way. Coding Level of Care Code ED Telehealth Case Manager for Mckenna Jones
[2024-04-15 14:27] VITALS: BP 135/80; PULSE 98; O2SAT 91
[2024-04-15 14:27] LABS: Influenza A NEGATIVE (Negative); Influenza B NEGATIVE (Negative); Respiratory Syncytial Virus Ce NEGATIVE (Negative)
[2024-04-15 14:42] LABS: Covid PCR Positive (Negative)
[2024-04-15 14:49] LABS: Basophils % 0.1 %; Hematocrit 42.3 % (36-47); Lymphocytes # 0.8 10^3/uL (0.8-4.8); Lymphocytes % 10.8 %; Mean Corpuscular HGB Conc 35.7 g/dL (30-55); Mean Corpuscular Hemoglobin 34.2 pg (27-33); Mean Corpuscular Volume 95.7 fl (85-98); Mean Platelet Volume 10.7 fL (7.4-10.4); Monocytes # 0.6 10^3/uL (0.2-0.9); Monocytes % 9.1 %; Neutrophils % 79.6 %; Nucleated Red Blood Cells % 0 %; Platelet Count 174 10^3/cmm (157-399); Red Blood Count 4.42 10^6/uL (3.85-5.65); Red Cell Distribution Width 12.4 % (12.1-15.1); White Blood Count 7.04 10^3/uL (3.29-11.43)
[2024-04-15 15:14] LABS: Alanine Aminotransferase 17 U/L (0-33); Albumin Level 3.9 g/dL (3.5-5.2); Alkaline Phosphatase 68 U/L (35-105); Anion Gap 20.8 (5-19); Aspartate Amino Transferase 21 U/L (0-32); Blood Urea Nitrogen 9 mg/dL (8-23); Calcium 8.7 mg/dL (8.5-10.5); Carbon Dioxide 17 mmol/L (22-29); Chloride 98 mmol/L (98-107); Creatinine Clr Calc Pharmacy 67.2512; Globulin 2.5 g/dL (1.3-4.6); Glucose 122 mg/dL (65-115); NT Pro B Type Natriuretic Pept 685 pg/mL (0-125); Osmolality Calculated 274 mOsm/kg (285-295); Potassium 3.8 mmol/L (3.5-5.1); Sodium 132 mmol/L (136-145); Total Bilirubin 0.9 mg/dL (0.15-1.2); Total Protein 6.4 g/dL (6.6-8.7)
[2024-04-15] MEDS: acetaminophen 325 mg Tablet 650 MG PO (15:41)
[2024-04-15 15:46] VITALS: BP 139/71; PULSE 95; O2SAT 95
== END 2024-04-15 15:49 | disposition home or self-care (01) ==
PROVIDERS: Emergency Medicine; Emergency Provider Family Medicine; PCP Family Medicine
DX: U07.1 COVID-19 (principal); Z11.52 Encounter for screening for COVID-19; Z79.82 Long term (current) use of aspirin; E78.5 Hyperlipidemia, unspecified; I10 Essential (primary) hypertension
CPT/HCPCS: 71045; 80053; 83880; 85025; 87081; 87637; 87880; 99284

== ENCOUNTER → 2024-06-20 09:21 | Outpatient (BNVA) | payer MEDICARE, SELFPAY | PROVIDERS: PCP Family Medicine; Visit Provider Internal Medicine Cardiovascular Disease | DX: I25.810 Atherosclerosis of coronary artery bypass graft(s) without angina pectoris (principal); Z95.810 Presence of automatic (implantable) cardiac defibrillator; I10 Essential (primary) hypertension; I42.9 Cardiomyopathy, unspecified; I95.9 Hypotension, unspecified | CPT/HCPCS: 99214 ==

== ENCOUNTER → 2024-07-19 10:20 | Outpatient (BNVA) | payer MEDICARE, SELFPAY | PROVIDERS: PCP Family Medicine; Visit Provider Podiatrist Foot & Ankle Surgery | DX: M76.822 Posterior tibial tendinitis, left leg (principal); M20.22 Hallux rigidus, left foot | CPT/HCPCS: 99213 ==

== ENCOUNTER → 2024-09-20 09:59 | Outpatient (BNVA) | payer MEDICARE, SELFPAY | PROVIDERS: PCP Family Medicine; Visit Provider Podiatrist Foot & Ankle Surgery | DX: M76.822 Posterior tibial tendinitis, left leg (principal); M79.672 Pain in left foot; M20.22 Hallux rigidus, left foot | CPT/HCPCS: 99214 ==

== ENCOUNTER 2024-10-18 10:51 | Outpatient (CLI) | payer MEDICARE, SELFPAY | END 2024-10-18 10:52 | disposition home or self-care (01) | LOC: SPT 10:52 | PROVIDERS: PCP Family Medicine; Visit Provider Podiatrist Foot & Ankle Surgery | DX: Z46.89 Encounter for fitting and adjustment of other specified devices (principal); M20.22 Hallux rigidus, left foot; M76.822 Posterior tibial tendinitis, left leg; M79.671 Pain in right foot; M79.672 Pain in left foot | CPT/HCPCS: L3030 ==

== ENCOUNTER → 2024-11-01 10:59 | Outpatient (BNVA) | payer MEDICARE, SELFPAY | PROVIDERS: PCP Nurse Practitioner Family; Visit Provider Podiatrist Foot & Ankle Surgery | DX: M76.822 Posterior tibial tendinitis, left leg (principal); M79.672 Pain in left foot; M20.22 Hallux rigidus, left foot | CPT/HCPCS: 73630; 99214 ==

== ENCOUNTER → 2024-11-21 10:21 | Outpatient (BNVA) | payer MEDICARE, SELFPAY | PROVIDERS: PCP Nurse Practitioner Family; Visit Provider Podiatrist Foot & Ankle Surgery | DX: L60.0 Ingrowing nail (principal); M76.822 Posterior tibial tendinitis, left leg; M20.22 Hallux rigidus, left foot | CPT/HCPCS: 99214 ==

== ENCOUNTER → 2024-12-28 09:53 | Outpatient (BNVA) | payer MEDICARE, SELFPAY | PROVIDERS: PCP Nurse Practitioner Family; Visit Provider Podiatrist Foot & Ankle Surgery | DX: L60.0 Ingrowing nail (principal) | CPT/HCPCS: 11750; J9999 ==

== ENCOUNTER → 2025-02-15 14:56 | Outpatient (BNVA) | payer MEDICARE, SELFPAY | PROVIDERS: PCP Nurse Practitioner Family; Visit Provider Nurse Practitioner Family | DX: L57.8 Other skin changes due to chronic exposure to nonionizing radiation (principal); L81.4 Other melanin hyperpigmentation; L82.1 Other seborrheic keratosis; L60.3 Nail dystrophy; D18.01 Hemangioma of skin and subcutaneous tissue; L82.0 Inflamed seborrheic keratosis; R58 Hemorrhage, not elsewhere classified; L53.8 Other specified erythematous conditions; Z78.9 Other specified health status; R20.8 Other disturbances of skin sensation; L29.89 Other pruritus | CPT/HCPCS: 17110; 99213 ==

== ENCOUNTER 2025-03-12 10:42 | Outpatient (CLI) | payer MEDICARE, SELFPAY ==
--- NOTE | 2025-03-12 10:45 | MM_ITS ---
WS: [id number] BILATERAL 3D TOMOSYNTHESIS DIGITAL SCREENING MAMMOGRAPHY WITH CAD CLINICAL INFORMATION: SCREENING HISTORY: Screening mammogram. No current complaints. COMPARISON: 2022 TECHNIQUE: Bilateral CC and MLO views. FINDINGS: Scattered fibroglandular densities bilaterally. No suspicious focal mass, asymmetry, calcifications, or architectural distortion. No evidence of malignancy. Vascular calcification. Incidental punctate calcifications. MM/MM scr tomosynthesis [id number] IMPRESSION: DENSITY: There are scattered areas of fibroglandular density. BI-RADS: 2 - Benign. FOLLOW UP: 1 Year Follow-up Recommend return to annual screening mammography.
== END 2025-03-12 10:43 | disposition home or self-care (01) ==
LOC: RAD 10:42
PROVIDERS: PCP Nurse Practitioner Family; Visit Provider Nurse Practitioner Family
DX: Z12.31 Encounter for screening mammogram for malignant neoplasm of breast (principal); R92.323 Mammographic fibroglandular density, bilateral breasts; R92.1 Mammographic calcification found on diagnostic imaging of breast
CPT/HCPCS: 77063; 77067